=== PATIENT | female | born 1985 | race Caucasian/White ===

== ENCOUNTER 2017-11-13 07:19 | Emergency (ER) | payer MEDICAID, SELFPAY ==
[2017-11-13 07:20] VITALS: BP 119/83; PULSE 92; RESP 16; TEMP 37.1; O2SAT 100; BMI 37.4
--- NOTE | 2017-11-13 07:39 | RAD_ITS ---
STUDY: X-RAY CHEST REASON FOR EXAM: Female, 32 years old. Nonproductive cough TECHNIQUE: PA and lateral views of the chest. COMPARISON: 04/03/2015 FINDINGS: The lungs are clear and expanded. There is no demonstrated pleural abnormality. Normal size heart. Normal mediastinum and sherry. Normal visualized pulmonary arteries. Normal visualized aortic arch and descending thoracic aorta. Normal visualized thoracic spine. Normal visualized ribs, clavicles, and shoulders. There is no demonstrated abnormality of the visualized soft tissue structures of the upper abdomen. RAD/Chest PA and Lateral IMPRESSION: Normal x-ray examination of the chest. Electronically Signed: Micha Antonio MD at 8:31 EDT , Service support ,
[2017-11-13] MEDS: predniSONE 20 MG Tablet 60 MG PO (07:44)
[2017-11-13] MEDS: Ipratropium/Albuterol Sulfate 3 ML AMPUL.NEB INHALATION (07:44)
[2017-11-13 07:50] VITALS: PULSE 76; RESP 20
[2017-11-13 07:51] VITALS: O2SAT 98
--- NOTE | 2017-11-13 08:19 | ED.DCSUM_ITS ---
- ER Visit Summary Date of Service: 11/13/17 Chief Complaint: Cough History of Present Illness: The patient is a 32 F with a cough that started yesterday. This is a dry cough. She has bilateral rib pain and wheezing. She tried her albuterol inhaler but had minimal relief. She has a history of asthma. She had bronchitis and pneumonia last month and was on amoxicillin. She reports no heart history or history of PE. Physical Examination: No signs unremarkable. Afebrile. 100% on room air. Patient has diffuse expiratory wheeze. Heart regular. No murmurs. Skin appears normal. Pulses strong and equal. Calves soft and supple. Test Results: We will check chest x-ray and influenza test. Emergency Department Course and Treatment: Patient was treated with DuoNeb and prednisone while awaiting results. Chest x-ray and influenza testing were unremarkable. The patient felt better on reassessment. This is likely a viral illness with an asthma exacerbation. Will prescribe prednisone. She has breathing treatments at home. Will also add naproxen. She was given a pocket prescription for azithromycin if she has continued symptoms. Treatment Plan: As above Disposition: Discharged Impression: 1. Asthma exacerbation This note was generated with [employer] dictation software. It may contain incorrect words, spelling, and punctuation that were not noted in review of the chart prior to signing ED Disposition - Plan for ED Patient: Chief Complaint: Cough Referrals: Kendell Morgan DO [Primary Care Provider] -
--- NOTE | 2017-11-13 08:38 | ED.DEP ---
ED Disposition - Plan for ED Patient: Chief Complaint: Cough Instructions: Acute Bronchitis Prescriptions: Azithromycin [Zithromax] 250 mg PO DAILY #6 tab Naproxen [Naprosyn] 500 mg PO BID PRN #20 tab Prednisone 40 mg PO DAILY 5 Days #20 tab Referrals: Kendell Morgan DO [Primary Care Provider] -
[2017-11-13 08:58] VITALS: BP 129/67; PULSE 81; RESP 16; O2SAT 99
== END 2017-11-13 08:58 | disposition home or self-care (01) ==
PROVIDERS: Emergency Provider Emergency Medicine; Family Provider Student in an Organized Health Care Education/Training Program; PCP Student in an Organized Health Care Education/Training Program
DX: J45.901 Unspecified asthma with (acute) exacerbation (principal); R07.81 Pleurodynia; Z72.0 Tobacco use; Z79.899 Other long term (current) drug therapy; Z87.01 Personal history of pneumonia (recurrent); Z87.09 Personal history of other diseases of the respiratory system
CPT/HCPCS: 71046; 87804; 94640; 99283

== ENCOUNTER 2019-05-03 12:00 | Inpatient (IN) | payer MEDICAID, SELFPAY ==
[2019-05-03 12:00] VITALS: BP 117/81; PULSE 88; RESP 16; TEMP 37.1; O2SAT 99; BMI 30.9
--- NOTE | 2019-05-03 12:14 | CT_ITS ---
STUDY: CT ABDOMEN AND PELVIS WITH CONTRAST REASON FOR EXAM: Female, 34 years old. 2 day history of right lower quadrant pain with nausea and vomiting. Diarrhea. RADIATION DOSAGE (If Supplied By Facility): CTDIvol = ( 14.58 ) mGy, DLP = ( 937.02 ) mGycm TECHNIQUE: Transaxial images were obtained from the dome of the diaphragm to the symphysis pubis with oral contrast. 100 IV/Oral Isovue 300 was administered. Sagittal and coronal images were reconstructed. Individualized dose optimization techniques were used for this CT. COMPARISON: None. FINDINGS: The visualized lung bases are unremarkable. The visualized portions of the heart are within normal limits. Normal liver. Normal gallbladder and extrahepatic biliary system. Normal spleen. Normal pancreas. Normal bilateral adrenal glands. Normal right kidney. Normal left kidney. Normal visualized stomach. Normal small intestine. Diffuse circumferential wall thickening and edematous changes with increased markings in the surrounding peritoneal fat of the cecum and descending colon to the level of the transverse colon. This is in keeping with colitis. Scattered sigmoid diverticula. Small lymph nodes in the root of the mesentery in keeping with mesenteric adenitis. The appendix is visualized and appears normal. Normal abdominal aorta. Normal inferior vena cava. There is borderline retroperitoneal lymphadenopathy with enlarged nodes no greater than 10mm in the short axis diameter. Normal urinary bladder. Prior bilateral tubal ligation. Normal abdominal wall. Normal osseous structures. CT/Abdomen/Pelvis WITH Contrast IMPRESSION: There is evidence of colitis of the right hemicolon. Electronically Signed: Pablito Staley, at 14:36 EDT , Service support ,
[2019-05-03] MEDS: Morphine 4 MG/ML Syringe IV (12:35)
[2019-05-03] MEDS: 0.9% Normal Saline 1,000 ML 1000 ML IV (12:35)
[2019-05-03] MEDS: Ondansetron 4 MG/2 ML Vial IV (12:35)
[2019-05-03 12:39] LABS: Mucous, Urine 0 SEEN /hpf (<or=2+)
[2019-05-03 12:45] LABS: Color, Urine Yellow (Yellow); Glucose, Dipstick Normal (Normal); Ketone-Dipstick Negative (Negative); Leukocyte Esterase-Dipstick 100 /ul (Negative); Nitrite-Dipstick Negative (Negative); Occult Blood-Urine 50 /ul (Negative); Protein-Dipstick Negative (Negative); Specific Gravity, Urine 1.015 (1.002-1.030); Urine Bilirubin Dipstick Negative (Negative); Urine Clarity Sl. Cloudy (Clear); Urine Urobilinogen Normal (Normal)
[2019-05-03 12:51] LABS: Absolute Lymphocyte Count 2.03 X10^3/uL (0.83-4.51); Absolute Neutrophil Count 9.2 X10^3/uL (2.0-7.7); Basophil# 0.07 X10^3/uL; Basophil% 0.6 % (0-1); Eosinophil# 0.09 X10^3/uL; Eosinophils% 0.7 % (0-5); Hematocrit 40.8 % (37-47); Hemoglobin 13.7 g/dL (12.0-15.0); Lymphocyte # 2.03 X10^3/ul (4.0); Lymphocyte % 16.5 % (19-41); Mean Corp Hgb Conc 33.6 g/dL (32-36); Mean Corpuscular Hgb 31.5 pg (27.0-32.0); Mean Corpuscular Volume 93.8 fL (81-99); Mean Platelet Vol. 11.4 fl (6.2-12.0); Monocyte# 0.77 X10^3/uL; Monocyte% 6.3 % (0-10); NRBC Flagged by Analyzer 0 % (0-5); Neutrophil # 9.18 X10^3/uL (2.7-7.7); Neutrophil % 74.4 % (47-70); Platelet Count 242 K/mm3 (150-450); RBC Distribution Width CV 13.6 % (11.6-14.6); RBC Distribution Width SD 47.3 fl (35.1-43.9); Red Blood Count 4.35 M/mm3 (4.2-5.4); White Blood Count 12.3 K/mm3 (4.4-11.0)
[2019-05-03 12:56] LABS: Bacteria 1+ /hpf (None Seen); Red Blood Cells-Urine 0-5 SEEN /hpf (0-5); Squamous Epithelial Cells - UA 5-10 SEEN /hpf (5-10); White Blood Cells 5-10 SEEN /hpf (0-5)
--- NOTE | 2019-05-03 12:58 | ED.VIS.GI ---
History of Present Illness Chief Complaint: Abd Pain Informant: Patient - Abdominal Pain/Flank Pain Onset: Weeks - 1 week Context: Gradual Onset Timing: Continuous Quality: Dull Location: RLQ Current Severity: Moderate Maximum Severity: Severe Worsened by: Food Relieved by: Remaining Still - Nausea/Vomiting/Emesis GI Symptom: Nausea Onset: Yesterday Severity: Severe - Diarrhea/Melena/Hematochezia GI Symptom: Diarrhea Onset: Weeks - 1 Stool Quality: Watery. Negative for: Mucous, Black, Maroon, RIKI per rectum Severity: Severe Associated Symptoms: Negative for: Dysuria, Frequency, Hematuria, Urgency LMP: last week Narrative: 34-year-old female with worsening nausea vomiting and diarrhea for 1 week and right lower quadrant pain that is progressively gotten worse. No fevers. No melena or hematochezia. No hematemesis or coffee-ground emesis. No urinary symptoms. No back pain. She is not lightheaded or dizzy. No chest pain or shortness of breath. She has not had any recent antibiotic use or any sick contacts. Sent in by her family physician for concern for appendicitis. Prior similar symptoms: No Recent Illness/Hospitalization: No Past Medical History - Allergies and Home Meds Allergies/Adverse Reactions: Allergies No Known Allergies Allergy (Verified 11/13/17 07:20) Prior records reviewed: Yes Past Medical History: - - depression Surgical History: - - x 3 Smoking Status: Current every day smoker Review of Systems All systems negative except as indicated Gastrointestinal: Reports: Abdominal pain, Nausea, Vomiting, Diarrhea Physical Exam Vital Signs/Narrative: Vital Signs Temp Pulse Resp BP Pulse Ox 05/03/19 12:00 98.7 F 88 16 117/81 H 99 Inital Vital Signs reviewed: Yes General: Well nourished, Well developed, No Acute Distress Head: Normocephalic, Atraumatic Eyes: Perrl, EOMI ENT: Moist mucous membranes Neck: Supple, Nontender Cardiovascular: Regular rate, Regular rhythm Respiratory: No distress, CTA bilaterally, Chest nontender Abdomen: Soft, Nondistended, Normal bowel sounds, No masses, Tender - RLQ TTP. Negative for: Guarding, Rebound tenderness Back: Nontender Extremities: Nontender, No edema Skin: Normal color, No rash Neurological: Alert, Oriented x3 Psychological: Normal affect Diagnostic/Tx/Re-eval - Medical Decision Making Orthostatic vital signs were positive. Heart rate remains around 120 bpm. Patient has melena on rectal exam Hemoccult positive. Laboratory work-up shows a stable hemoglobin at 16.4. The rest of his laboratory work-up was unremarkable. I spoke with Dr. Mays initially who recommended transfer of the patient to a different facility. I then spoke with Dr. Flores who felt patient could stay here and that he would be able to perform an endoscopy and colonoscopy on the patient in the morning. I then spoke with the hospitalist. He agreed with admission. He will be admitted to the ICU. Patient's vital signs are stable at this time Critical care time (excluding procedures): 30-74 minutes ED Disposition - Plan for ED Patient: Disposition: Acute Care Hospital [facility] Diagnosis: Upper GI bleed
[2019-05-03 13:02] LABS: Internal QC Validated? YES +Cl - CLEAR BKGD; Pregnancy, Serum, hCG Quali. NEGATIVE Negative
[2019-05-03 13:03] LABS: ALB/GLOB Ratio 0.8 RATIO (0.9-2.4); AST(SGOT) 19 U/L (15-37); Alanine Aminotransfer ALT/SGPT 26 U/L (13-56); Albumin, Serum 3.5 g/dL (3.2-5.0); Alkaline Phosphatase 76 U/L (45-117); Anion Gap 4 (5-15); BUN 6 mg/dL (7-18); BUN/Creat Ratio 7.1 RATIO (10-20); Calcium,Total 8.8 mg/dL (8.5-10.1); Chloride 109 mmol/L (98-107); Creatinine, Serum 0.85 mg/dL (0.55-1.02); EST Glomerular Filtration Rate 80 mL/min (>60); Est Glom Filt Rate - Afr Amer 97 mL/min (>60); Estimated Creatinine Clearance 75.69 ml/min; Globulin 4.2 g/dL (2.2-4.2); Glucose 99 mg/dL (74-106); Lipase 91 U/L (73-393); Potassium 3.5 mmol/L (3.5-5.1); Protein, Total 7.7 g/dL (6.4-8.2); Sodium Level 138 mmol/L (136-145)
[2019-05-03 14:49] VITALS: BP 112/59; PULSE 66; RESP 16; O2SAT 99
[2019-05-03 16:04] VITALS: BP 121/74; PULSE 73; RESP 16; O2SAT 98
[2019-05-03 16:05] VITALS: BMI 31.0
--- NOTE | 2019-05-03 16:30 | PCM.HP.STD ---
Problem List (1) Right-sided colitis Status: Acute (2) Asthma Status: Chronic History of Present Illness Date of Admission: 05/03/19 Chief Complaint: Abdominal pain since yesterday. The patient is a 34 year old F with history of asthma on inhalers came to ED with 2 days history of abdominal pain predominantly on right side along with diarrhea. 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 Abdominal pain is about 8/10 intensity, persistent without relief. She went to urgent care from where she was referred to ED. Denies nausea, vomiting, GI bleed. Never had similar abdominal pain in the past. Patient denies lower urinary tract symptoms. She has normal menstrual with no menorrhagia. Denies fever chills. In the ED, CT abdomen was performed which shows mainly right-sided colitis from cecum up to mid transverse. Past Medical History Past Medical History (Chronic Problems): Chronic Problems Asthma (Chronic) Allergies No Known Allergies Allergy (Verified 11/13/17 07:20) Home Medications: Ambulatory Orders Medication Instructions Recorded Sertraline HCl [Zoloft] 50 mg PO DAILY 12/15/14 Albuterol Inhaler [Ventolin Hfa 2 puff INHALATION Q4H PRN PRN 01/05/15 (SP)] Fluticasone 44 Mcg [Flovent 44 Mcg] 1 puff INHALATION DAILY 05/03/19 Surgical History: - - x 3 Smoking Status: Current every day smoker Tobacco Use: Cigarettes - *Family History Maternal History Items: No pertinent history Review of Systems Constitutional: Denies: Chills, Fever, Weight Change HEENT: Denies: Head Aches, Sinus Congestion, Sinus Drainage Cardiovascular: Denies: Chest Pain, Palpitations Respiratory: Denies: Cough, Shortness of breath at rest, Sputum production Gastrointestinal: Reports: Abdominal Pain, Diarrhea. Denies: Nausea, Vomiting Genitourinary: Denies: Dysuria Musculoskeletal: Denies: Joint Pain, Joint Tenderness Skin: Denies: Rash, Wounds Neurological: Denies: Numbness, Tingling, Focal weakness Psychiatric: Denies: Anxiety, Depression, Homicidal Ideations, Suicidal Ideations Hematologic/ Lymphatic: Denies: Easy Bruising, Easy Bleeding VTE Information - Inpt Only VTE Present on Admission: No VTE Mechan Device Prophylaxis: None Reason prophylaxis not ordered:: Procedure Not Indicated - Risk early. Early ambulation. Patient Problems: Active and Suspected Problems Right-sided colitis (Acute) - Physical Exam General: Alert, Oriented x3, Cooperative HEENT: Atraumatic, PERRLA, EOMI, Normocephalic Neck: Supple, No JVD, Negative Carotid Bruits Lungs: Clear to auscultation, Normal air movement, No rhonchi, No wheeze, No rales Cardiovascular: Regular rate, Regular Rhythm, Normal S1, Normal S2, No murmurs Abdomen: Bowel Sounds Present, Soft, Hypoactive Bowel Sounds, Tender - Tenderness present over right lower, right upper quadrant. Extremities: No edema, Capillary Refill Less than 3 Seconds Skin: No rashes, No breakdown Musculoskeletal: No Tenderness to Palpation of Joints or Extremities Neurological: Cranial nerves II-XII grossly intact Psych/Mental Status: Normal Affect, Appropriate Vital Signs Temp Pulse Resp BP Pulse Ox 98.7 F 73 16 121/74 H 98 05/03/19 12:00 05/03/19 16:04 05/03/19 16:04 05/03/19 16:04 05/03/19 16:04 Oxygen Delivery Method Room Air Weight: 175 lb Body Mass Index (BMI) 30.9 Intake and Output for Last 24 Hours 05/01/19 05/02/19 05/03/19 23:59 23:59 23:59 Intake Total 1000 / 1000 Balance 1000 / 1000 Laboratory Tests Past 24 Hrs 05/03/19 05/03/19 05/03/19 12:20 12:25 12:25 WBC 12.3 H RBC 4.35 Hgb 13.7 Hct 40.8 MCV 93.8 MCH 31.5 MCHC 33.6 RDW Std Deviation 47.3 H RDW Coeff of Jori 13.6 Plt Count 242 MPV 11.4 Immature Gran % (Auto) 1.500 H Neut % (Auto) 74.4 H Lymph % (Auto) 16.5 L [place] % (Auto) 6.3 Eos % (Auto) 0.7 Baso % (Auto) 0.6 Absolute Neuts (auto) 9.2 H Absolute Lymphs (auto) 2.03 Nucleated RBC % 0 Sodium 138 Potassium 3.5 Chloride 109 H Carbon Dioxide 25.0 Anion Gap 4 L BUN 6 L Creatinine 0.85 Estim Creat Clear Calc 75.69 Est GFR (MDRD) Af Amer 97 Est GFR (MDRD) Non-Af 80 BUN/Creatinine Ratio 7.1 L Glucose 99 Calcium 8.8 Total Bilirubin 0.20 AST 19 ALT 26 Alkaline Phosphatase 76 Total Protein 7.7 Albumin 3.5 Globulin 4.2 Albumin/Globulin Ratio 0.8 L Lipase 91 Serum , Qual Urine Color Yellow Urine Clarity Sl. Cloudy Urine pH 6.0 Ur Specific [place] 1.015 Urine Protein Negative Urine Glucose (UA) Normal Urine Ketones Negative Urine Occult Blood 50 H Urine Nitrite Negative Urine Bilirubin Negative Urine Urobilinogen Normal Ur Leukocyte Esterase 100 H Urine RBC 0-5 SEEN Urine WBC 5-10 SEEN Ur Squamous Epith Cells 5-10 SEEN Urine Bacteria 1+ Urine Mucus 0 SEEN 05/03/19 12:25 WBC RBC Hgb Hct MCV MCH MCHC RDW Std Deviation RDW Coeff of Jori Plt Count MPV Immature Gran % (Auto) Neut % (Auto) Lymph % (Auto) [place] % (Auto) Eos % (Auto) Baso % (Auto) Absolute Neuts (auto) Absolute Lymphs (auto) Nucleated RBC % Sodium Potassium Chloride Carbon Dioxide Anion Gap BUN Creatinine Estim Creat Clear Calc Est GFR (MDRD) Af Amer Est GFR (MDRD) Non-Af BUN/Creatinine Ratio Glucose Calcium Total Bilirubin AST ALT Alkaline Phosphatase Total Protein Albumin Globulin Albumin/Globulin Ratio Lipase Serum , Qual NEGATIVE Urine Color Urine Clarity Urine pH Ur Specific [place] Urine Protein Urine Glucose (UA) Urine Ketones Urine Occult Blood Urine Nitrite Urine Bilirubin Urine Urobilinogen Ur Leukocyte Esterase Urine RBC Urine WBC Ur Squamous Epith Cells Urine Bacteria Urine Mucus Assessment/Plan All Active Problems Right-sided colitis (Acute) The patient is a 34 year old F with history of asthma on inhalers came to ED with 2 days history of abdominal pain predominantly on right side along with diarrhea. 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 Abdominal pain is about 8/10 intensity, persistent without relief. She went to urgent care from where she was referred to ED. Denies nausea, vomiting, GI bleed. Never had similar abdominal pain in the past. Patient denies lower urinary tract symptoms. She has normal menstrual with no menorrhagia. Denies fever chills. In the ED, CT abdomen was performed which shows diffuse circumferential wall thickening and edematous changes with increased markings surrounding peritoneal fat of cecum, ascending and transverse colon Consistent with right-sided colitis. 1. Right-sided colitis involving from cecum up to mid transverse colon: Patient is being admitted to [facility]. IV fluid normal saline. Clear liquid diet. Patient had IV Zosyn in the ED. Started on IV Cipro and Flagyl. Dr. Tinsley consult. Stool for enteric bacteriology panel, occult blood and leukocytes ordered. I think it most probably infectious colitis from slaughterhouse. Patient does not have any recent antibiotic exposure in last 3 months. 2. Asthma with history of smoking: Smoking cessation advised. Continue fluticasone inhaler and albuterol inhaler as needed. 3. DVT prophylaxis low risk,: No prophylaxis indicated. Early ambulation encouraged. Clinical Impression(s) from Imaging Studies Abdomen/Pelvis CT 05/03/19 12:14 IMPRESSION: There is evidence of colitis of the right hemicolon. Code Visit Inpatient E&M: 87729 Init Hosp L2
[2019-05-03 16:50] VITALS: BMI 31.5
[2019-05-03 16:55] VITALS: BP 103/59; PULSE 66; RESP 16; TEMP 37; O2SAT 100
[2019-05-03] MEDS: 0.9% Normal Saline 1,000 ML 100 ML IV (17:52)
[2019-05-03] MEDS: metroNIDAZOLE 500 MG/100 ML BAG 100 MG IV (17:53)
--- NOTE | 2019-05-03 20:15 | CON.PCM_ITS ---
Reason for Consult Date of Consultation: 05/03/19 Reason for Consultation: right-sided abdominal pain-colitis History of Present Illness: The patient is a 34 year old F with a 2 day history of loose watery stools and right-sided abdominal pain. the patient denied nausea or vomiting. She denied foreign travel. She noted no recent antibiotic use. She notes no other people at home home with food type illnesses. she presented to urgent care and was felt to have significant right lower quadrant tenderness and sent to [facility] for abdominal pain rule out appendicitis. the patient was found of a mildly overweight blood cell count of 12.3. Mild left shift, unremarkable metabolic panel. CT scan of the abdomen and pelvis was obtained which demonstrated right-sided colitis. Past Medical History Past Medical History (Chronic Problems): Chronic Problems Asthma (Chronic) Allergies No Known Allergies Allergy (Verified 11/13/17 07:20) Home Medications: Ambulatory Orders Medication Instructions Recorded Sertraline HCl [Zoloft] 50 mg PO DAILY 12/15/14 Albuterol Inhaler [Ventolin Hfa 2 puff INHALATION Q4H PRN PRN 01/05/15 (SP)] Fluticasone 44 Mcg [Flovent 44 Mcg] 1 puff INHALATION DAILY 05/03/19 Surgical History: - - x 3 Smoking Status: Current every day smoker Tobacco Use: Cigarettes - *Family History Maternal History Items: No pertinent history Review of Systems Constitutional: Denies: Chills, Fever, Weight Change HEENT: Denies: Head Aches, Sinus Congestion, Sinus Drainage Cardiovascular: Denies: Chest Pain, Palpitations Respiratory: Denies: Cough, Shortness of breath at rest, Sputum production Gastrointestinal: Reports: Abdominal Pain, Diarrhea. Denies: Nausea, Vomiting Genitourinary: Denies: Dysuria Musculoskeletal: Denies: Joint Pain, Joint Tenderness Skin: Denies: Rash, Wounds Neurological: Denies: Numbness, Tingling, Focal weakness Psychiatric: Denies: Anxiety, Depression, Homicidal Ideations, Suicidal Ideations Hematologic/ Lymphatic: Denies: Easy Bruising, Easy Bleeding Patient Problems: Active and Suspected Problems Right-sided colitis (Acute) - Physical Exam General: Alert, Oriented x3, Cooperative HEENT: Atraumatic, PERRLA, EOMI, Normocephalic Neck: Supple, No JVD, Negative Carotid Bruits Cardiovascular: Regular rate, No murmurs Abdomen: Bowel Sounds Present, Soft, Tender - along the right abdomen without diffuse peritoneal signs Vital Signs Temp Pulse Resp BP Pulse Ox 98.6 F 66 16 103/59 L 100 05/03/19 16:55 05/03/19 16:55 05/03/19 16:55 05/03/19 16:55 05/03/19 16:55 Oxygen Delivery Method Room Air Weight: 80.739 kg Body Mass Index (BMI) 31.5 Intake and Output for Last 24 Hours 05/01/19 05/02/19 05/03/19 23:59 23:59 23:59 Intake Total 1401.67 / 1401.67 Balance 1401.67 / 1401.67 Laboratory Tests Past 24 Hrs 05/03/19 05/03/19 05/03/19 12:20 12:25 12:25 WBC 12.3 H RBC 4.35 Hgb 13.7 Hct 40.8 MCV 93.8 MCH 31.5 MCHC 33.6 RDW Std Deviation 47.3 H RDW Coeff of Jori 13.6 Plt Count 242 MPV 11.4 Immature Gran % (Auto) 1.500 H Neut % (Auto) 74.4 H Lymph % (Auto) 16.5 L [place] % (Auto) 6.3 Eos % (Auto) 0.7 Baso % (Auto) 0.6 Absolute Neuts (auto) 9.2 H Absolute Lymphs (auto) 2.03 Nucleated RBC % 0 Sodium 138 Potassium 3.5 Chloride 109 H Carbon Dioxide 25.0 Anion Gap 4 L BUN 6 L Creatinine 0.85 Estim Creat Clear Calc 75.69 Est GFR (MDRD) Af Amer 97 Est GFR (MDRD) Non-Af 80 BUN/Creatinine Ratio 7.1 L Glucose 99 Calcium 8.8 Total Bilirubin 0.20 AST 19 ALT 26 Alkaline Phosphatase 76 Total Protein 7.7 Albumin 3.5 Globulin 4.2 Albumin/Globulin Ratio 0.8 L Lipase 91 Serum , Qual Urine Color Yellow Urine Clarity Sl. Cloudy Urine pH 6.0 Ur Specific [place] 1.015 Urine Protein Negative Urine Glucose (UA) Normal Urine Ketones Negative Urine Occult Blood 50 H Urine Nitrite Negative Urine Bilirubin Negative Urine Urobilinogen Normal Ur Leukocyte Esterase 100 H Urine RBC 0-5 SEEN Urine WBC 5-10 SEEN Ur Squamous Epith Cells 5-10 SEEN Urine Bacteria 1+ Urine Mucus 0 SEEN 05/03/19 12:25 WBC RBC Hgb Hct MCV MCH MCHC RDW Std Deviation RDW Coeff of Jori Plt Count MPV Immature Gran % (Auto) Neut % (Auto) Lymph % (Auto) [place] % (Auto) Eos % (Auto) Baso % (Auto) Absolute Neuts (auto) Absolute Lymphs (auto) Nucleated RBC % Sodium Potassium Chloride Carbon Dioxide Anion Gap BUN Creatinine Estim Creat Clear Calc Est GFR (MDRD) Af Amer Est GFR (MDRD) Non-Af BUN/Creatinine Ratio Glucose Calcium Total Bilirubin AST ALT Alkaline Phosphatase Total Protein Albumin Globulin Albumin/Globulin Ratio Lipase Serum , Qual NEGATIVE Urine Color Urine Clarity Urine pH Ur Specific [place] Urine Protein Urine Glucose (UA) Urine Ketones Urine Occult Blood Urine Nitrite Urine Bilirubin Urine Urobilinogen Ur Leukocyte Esterase Urine RBC Urine WBC Ur Squamous Epith Cells Urine Bacteria Urine Mucus Assessment/Plan All Active Problems Right-sided colitis (Acute) right-sided colitis-likely infectious Enteric panel is currently pending. C. difficile is negative. Fecal WBCs and occult blood is positive. the patient was started on antibiotics-ciprofloxacin and metronidazole. We'll follow the patient clinically. If her symptoms worsen or has increased bloody diarrhea would plan for unprepped colonoscopy. Otherwise comfortable with liquids and/or low residue diet until her abdominal pain symptoms and diarrhea resolve.
[2019-05-03] MEDS: Ciprofloxacin 400 MG/200 ML BAG 200 MG IV (21:03)
[2019-05-03] MEDS: Acetaminophen 325 MG Tablet 650 MG PO (21:04)
[2019-05-03 21:17] VITALS: BP 121/68; PULSE 75; RESP 16; TEMP 37.2; O2SAT 100
[2019-05-03] MEDS: oxyCODONE 5 MG Tablet PO (21:26)
[2019-05-03 21:36] VITALS: PULSE 75; RESP 16; O2SAT 100
[2019-05-04 03:23] VITALS: BP 105/56; PULSE 70; RESP 16; TEMP 36.5; O2SAT 98
[2019-05-04] MEDS: BENZOCAINE/MENTHOL 1 LOZENGE 2 LOZENGE MUCOUS MEM (04:19)
[2019-05-04] MEDS: Phenol/Sodium Phenolate 180ML 5 SPRAY MM (04:20)
[2019-05-04] MEDS: 0.9% Normal Saline 1,000 ML 100 ML IV ×2 (04:21→16:16)
[2019-05-04] MEDS: metroNIDAZOLE 500 MG/100 ML BAG 100 MG IV (05:25)
[2019-05-04 08:07] LABS: Absolute Neutrophil Count 5.3 X10^3/uL (2.0-7.7); Basophil# 0.06 X10^3/uL; Basophil% 0.7 % (0-1); Eosinophil# 0.16 X10^3/uL; Hematocrit 34.1 % (37-47); Hemoglobin 11.2 g/dL (12.0-15.0); Lymphocyte % 23.2 % (19-41); Mean Corp Hgb Conc 32.8 g/dL (32-36); Mean Corpuscular Hgb 31.3 pg (27.0-32.0); Mean Corpuscular Volume 95.3 fL (81-99); Mean Platelet Vol. 11.2 fl (6.2-12.0); Monocyte# 0.77 X10^3/uL; Monocyte% 9.4 % (0-10); NRBC Flagged by Analyzer 0 % (0-5); Neutrophil # 5.27 X10^3/uL (2.7-7.7); Neutrophil % 64.5 % (47-70); Platelet Count 196 K/mm3 (150-450); RBC Distribution Width CV 14.1 % (11.6-14.6); RBC Distribution Width SD 49.6 fl (35.1-43.9); Red Blood Count 3.58 M/mm3 (4.2-5.4); White Blood Count 8.2 K/mm3 (4.4-11.0)
[2019-05-04 08:31] LABS: Anion Gap 1 (5-15); BUN 5 mg/dL (7-18); BUN/Creat Ratio 6.8 RATIO (10-20); Calcium,Total 7.8 mg/dL (8.5-10.1); Chloride 115 mmol/L (98-107); Creatinine, Serum 0.74 mg/dL (0.55-1.02); EST Glomerular Filtration Rate 95 mL/min (>60); Est Glom Filt Rate - Afr Amer 115 mL/min (>60); Estimated Creatinine Clearance 86.94 ml/min; Glucose 84 mg/dL (74-106); Potassium 3.7 mmol/L (3.5-5.1); Sodium Level 143 mmol/L (136-145); Thyroid Stim Hormone (TSH) 0.96 uIU/mL (0.358-3.74)
[2019-05-04] MEDS: Ciprofloxacin 400 MG/200 ML BAG 200 MG IV (08:44)
[2019-05-04] MEDS: Sertraline 50 MG Tablet PO (08:44)
[2019-05-04 08:45] VITALS: BP 104/53; PULSE 70; RESP 14; TEMP 36.6; O2SAT 98
--- NOTE | 2019-05-04 09:26 | PCM.PN.HOSP ---
Patient Problems: Active and Suspected Problems Right-sided colitis (Acute) Subjective: Patient is a 34-year-old female admitted to the ED on 05/03/2019 with a complaint of right-sided abdominal pain with associated diarrhea for about 2 days. She did have any GI bleed and has never had such pain in the past. CT of the abdomen done showed right-sided colitis from the cecum to the mid transverse colon. She is on IV ciprofloxacin and metronidazole. General surgery on board. Patient seen and examined. She still has some abdominal pain but states is much better. Nausea and vomiting as well as diarrhea have resolved. Review of systems otherwise negative. General surgery on board and wish to keep patient on clear liquid diet for now. Vitals/I&O's: Vital Signs Temp Pulse Resp BP Pulse Ox 97.7 F L 70 16 105/56 L 98 05/04/19 03:23 05/04/19 03:23 05/04/19 03:23 05/04/19 03:23 05/04/19 03:23 Oxygen Delivery Method Room Air Weight: 178 lb Body Mass Index (BMI) 31.5 Intake and Output for Last 24 Hours 05/02/19 05/03/19 05/04/19 23:59 23:59 23:59 Intake Total 1803.34 / 2063.34 1728.34 / 1728.34 Output Total 1100 / 1100 Balance 1803.34 / 1463.34 628.34 / 628.34 General: Alert, Oriented x3, Cooperative, No apparent distress HEENT: Atraumatic, PERRLA, EOMI, Normocephalic Oral: Moist Mucosa Neck: Supple, No JVD, Negative Carotid Bruits Lungs: Clear to auscultation, Normal air movement, No rhonchi, No wheeze Cardiovascular: Regular rate, Regular Rhythm, Normal S1, Normal S2, No murmurs Abdomen: Bowel Sounds Present, Soft, - - mild tenderness in right lower quadrant, no guarding or rebound tenderness Extremities: No clubbing, No cyanosis, No edema, Capillary Refill Less than 3 Seconds Skin: No rashes, No breakdown Musculoskeletal: No Tenderness to Palpation of Joints or Extremities Lymphatic: No Cervical, Supraclavicular, or Inguinal Adenopathy Neurological: Cranial nerves II-XII grossly intact, Neuro grossly intact, Motor Exam 5/5 strength throughout Psych/Mental Status: Normal Affect, Appropriate, Alert and oriented to time, place, person, mood and affect Microbiology Past 72 Hours 05/04/19 03:32 Stool C. difficile DNA Amplification - Final 05/04/19 03:32 Stool Stool Lactoferrin - Final 05/04/19 03:32 Stool Stool Occult Blood (WILLY) - Final Occult Blood Positive Laboratory Results 05/03/19 12:20: Urine Color Yellow, Urine Clarity Sl. Cloudy, Urine pH 6.0, Ur Specific [place] 1.015, Urine Protein Negative, Urine Glucose (UA) Normal, Urine Ketones Negative, Urine Occult Blood 50 H, Urine Nitrite Negative, Urine Bilirubin Negative, Urine Urobilinogen Normal, Ur Leukocyte Esterase 100 H, Urine RBC 0-5 SEEN, Urine WBC 5-10 SEEN, Ur Squamous Epith Cells 5-10 SEEN, Urine Bacteria 1+, Urine Mucus 0 SEEN 05/03/19 12:25: WBC 12.3 H, RBC 4.35, Hgb 13.7, Hct 40.8, MCV 93.8, MCH 31.5, MCHC 33.6, RDW Std Deviation 47.3 H, RDW Coeff of Jori 13.6, Plt Count 242, MPV 11.4, Immature Gran % (Auto) 1.500 H, Neut % (Auto) 74.4 H, Lymph % (Auto) 16.5 L, [place] % (Auto) 6.3, Eos % (Auto) 0.7, Baso % (Auto) 0.6, Absolute Neuts (auto) 9.2 H, Absolute Lymphs (auto) 2.03, Nucleated RBC % 0 05/03/19 12:25: Sodium 138, Potassium 3.5, Chloride 109 H, Carbon Dioxide 25.0, Anion Gap 4 L, BUN 6 L, Creatinine 0.85, Estim Creat Clear Calc 75.69, Est GFR (MDRD) Af Amer 97, Est GFR (MDRD) Non-Af 80, BUN/Creatinine Ratio 7.1 L, Glucose 99, Calcium 8.8, Total Bilirubin 0.20, AST 19, ALT 26, Alkaline Phosphatase 76, Total Protein 7.7, Albumin 3.5, Globulin 4.2, Albumin/Globulin Ratio 0.8 L, Lipase 91 05/03/19 12:25: Serum , Qual NEGATIVE 05/04/19 07:49: WBC 8.2, RBC 3.58 L, Hgb 11.2 L, Hct 34.1 L, MCV 95.3, MCH 31.3, MCHC 32.8, RDW Std Deviation 49.6 H, RDW Coeff of Jori 14.1, Plt Count 196, MPV 11.2, Immature Gran % (Auto) 0.200, Neut % (Auto) 64.5, Lymph % (Auto) 23.2, [place] % (Auto) 9.4, Eos % (Auto) 2.0, Baso % (Auto) 0.7, Absolute Neuts (auto) 5.3, Absolute Lymphs (auto) 1.90, Nucleated RBC % 0 05/04/19 07:49: Sodium 143, Potassium 3.7, Chloride 115 H, Carbon Dioxide 27.0, Anion Gap 1 L, BUN 5 L, Creatinine 0.74, Estim Creat Clear Calc 86.94, Est GFR (MDRD) Af Amer 115, Est GFR (MDRD) Non-Af 95, BUN/Creatinine Ratio 6.8 L, Glucose 84, Calcium 7.8 L, TSH 0.96 Diagnostic Data Abdomen/Pelvis CT 05/03/19 12:14 IMPRESSION: There is evidence of colitis of the right hemicolon. Electronically Signed: Pablito Staley, at 14:36 EDT , Service support , Current Medications Acetaminophen (Tylenol) 650 mg PO Q6H PRN PRN PRN Reason: Mild Pain (1-3)/Temp > 100.7 F Last Admin: 05/03/19 21:04 Dose: 650 mg Documented by: Albuterol Sulfate (Ventolin Aerosols) 2.5 mg INHALATION Q4H PRN PRN PRN Reason: SOB &/OR WHEEZING Budesonide (Pulmicort Aerosol) 0.5 mg INHALATION Q12H.RT CHRISTI Sodium Chloride () 1,000 mls @ 100 mls/hr IV .Q10H CHRISTI Last Infusion: 05/04/19 08:44 Dose: 0 mls/hr Documented by: Ciprofloxacin (Cipro) 400 mg in 200 mls @ 200 mls/hr IV Q12H CHRISTI Last Admin: 05/04/19 08:44 Dose: 200 mls/hr Documented by: Metronidazole (Flagyl) 500 mg in 100 mls @ 100 mls/hr IV Q8 [facility] Last Infusion: 05/04/19 06:25 Dose: Infused Documented by: Morphine Sulfate () 2 mg IV Q3H PRN PRN PRN Reason: Severe pain (7-10/10) Ondansetron HCl (Zofran) 4 mg IV Q8H PRN PRN PRN Reason: NAUSEA/VOMITING Oxycodone HCl (Oxyir) 5 mg PO Q4H PRN PRN PRN Reason: Moderate Pain (4-6/10) Last Admin: 05/03/19 21:26 Dose: 5 mg Documented by: Phenol/Menthol (Chloraseptic (Bkc)) 5 spray MM Q2H PRN PRN PRN Reason: SORE THROAT Last Admin: 05/04/19 04:20 Dose: 5 spray Documented by: Promethazine HCl (Phenergan) 12.5 mg IV Q6H PRN PRN PRN Reason: Breakthrough nausea/vomiting Sertraline HCl (Zoloft) 50 mg PO DAILY [facility] Last Admin: 05/04/19 08:44 Dose: 50 mg Documented by: Sodium Chloride () 10 - 40 ml IV UD PRN PRN Reason: SALINE FLUSH Throat Lozenges (Cepacol Sore Throat Lozenge) 2 lozenge MUCOUS MEM Q2H PRN PRN PRN Reason: SORE THROAT Last Admin: 05/04/19 04:19 Dose: 2 lozenge Documented by: Medical Necessity - Tobacco Use Smoking Status: Current every day smoker Tobacco Use: Cigarettes Assessment/Plan All Active Problems Right-sided colitis (Acute) 1. Colitis of the cecum to mid transverse colon' likely infectious still has abdominal pain, but diarrhea and vomiting have resolved general surgery on board; on clear liquid diet now continue IV ciprofloxacin and IV metronidazole stool occult blood was positive; C Diff was negative, stool enteric pathogens and ova and parasites are pending IV zofran prn 2. History of asthma: counselled to quit smoking. Continue fluticasone and albuterol inhalers. 3. Depression: stable. on zoloft. DVT prophylaxis: encourage ambulation; low risk Code Visit Inpatient E&M: 92405 [facility] Hosp L2
[2019-05-04] MEDS: oxyCODONE 5 MG Tablet PO (11:29)
[2019-05-04] MEDS: Acetaminophen 325 MG Tablet 650 MG PO ×2 (11:30→23:01)
--- NOTE | 2019-05-04 11:32 | PCM.PN.SRG ---
Patient Problems: Active and Suspected Problems Right-sided colitis (Acute) Subjective: improved but still present right sided abdominal pain - Physical Exam General: Alert, Oriented x3, Cooperative Lungs: Clear to auscultation, Normal air movement Cardiovascular: Regular rate, No murmurs Abdomen: Bowel Sounds Present, Soft, Tender - right sided Vital Signs Temp Pulse Resp BP Pulse Ox 97.8 F 70 14 104/53 L 98 05/04/19 08:45 05/04/19 08:45 05/04/19 08:45 05/04/19 08:45 05/04/19 08:45 Oxygen Delivery Method Room Air Weight: 80.739 kg Body Mass Index (BMI) 31.5 Intake and Output for Last 24 Hours 05/02/19 05/03/19 05/04/19 23:59 23:59 23:59 Intake Total 1803.34 / 2063.34 1928.34 / 1928.34 Output Total 1100 / 1100 Balance 1803.34 / 1463.34 828.34 / 828.34 Microbiology Past 72 Hours 05/04/19 08:10 Enteric Bacteriology - Final Stool 05/04/19 03:32 C. difficile DNA Amplification - Final Stool 05/04/19 03:32 Stool Lactoferrin - Final Stool 05/04/19 03:32 Stool Occult Blood (WILLY) - Final Stool Occult Blood Positive Laboratory Tests Past 24 Hrs 05/03/19 05/03/19 05/03/19 12:20 12:25 12:25 WBC 12.3 H RBC 4.35 Hgb 13.7 Hct 40.8 MCV 93.8 MCH 31.5 MCHC 33.6 RDW Std Deviation 47.3 H RDW Coeff of Jori 13.6 Plt Count 242 MPV 11.4 Immature Gran % (Auto) 1.500 H Neut % (Auto) 74.4 H Lymph % (Auto) 16.5 L [place] % (Auto) 6.3 Eos % (Auto) 0.7 Baso % (Auto) 0.6 Absolute Neuts (auto) 9.2 H Absolute Lymphs (auto) 2.03 Nucleated RBC % 0 Sodium 138 Potassium 3.5 Chloride 109 H Carbon Dioxide 25.0 Anion Gap 4 L BUN 6 L Creatinine 0.85 Estim Creat Clear Calc 75.69 Est GFR (MDRD) Af Amer 97 Est GFR (MDRD) Non-Af 80 BUN/Creatinine Ratio 7.1 L Glucose 99 Calcium 8.8 Total Bilirubin 0.20 AST 19 ALT 26 Alkaline Phosphatase 76 Total Protein 7.7 Albumin 3.5 Globulin 4.2 Albumin/Globulin Ratio 0.8 L Lipase 91 TSH Serum , Qual Urine Color Yellow Urine Clarity Sl. Cloudy Urine pH 6.0 Ur Specific [place] 1.015 Urine Protein Negative Urine Glucose (UA) Normal Urine Ketones Negative Urine Occult Blood 50 H Urine Nitrite Negative Urine Bilirubin Negative Urine Urobilinogen Normal Ur Leukocyte Esterase 100 H Urine RBC 0-5 SEEN Urine WBC 5-10 SEEN Ur Squamous Epith Cells 5-10 SEEN Urine Bacteria 1+ Urine Mucus 0 SEEN 05/03/19 05/04/19 05/04/19 12:25 07:49 07:49 WBC 8.2 RBC 3.58 L Hgb 11.2 L Hct 34.1 L MCV 95.3 MCH 31.3 MCHC 32.8 RDW Std Deviation 49.6 H RDW Coeff of Jori 14.1 Plt Count 196 MPV 11.2 Immature Gran % (Auto) 0.200 Neut % (Auto) 64.5 Lymph % (Auto) 23.2 [place] % (Auto) 9.4 Eos % (Auto) 2.0 Baso % (Auto) 0.7 Absolute Neuts (auto) 5.3 Absolute Lymphs (auto) 1.90 Nucleated RBC % 0 Sodium 143 Potassium 3.7 Chloride 115 H Carbon Dioxide 27.0 Anion Gap 1 L BUN 5 L Creatinine 0.74 Estim Creat Clear Calc 86.94 Est GFR (MDRD) Af Amer 115 Est GFR (MDRD) Non-Af 95 BUN/Creatinine Ratio 6.8 L Glucose 84 Calcium 7.8 L Total Bilirubin AST ALT Alkaline Phosphatase Total Protein Albumin Globulin Albumin/Globulin Ratio Lipase TSH 0.96 Serum , Qual NEGATIVE Urine Color Urine Clarity Urine pH Ur Specific [place] Urine Protein Urine Glucose (UA) Urine Ketones Urine Occult Blood Urine Nitrite Urine Bilirubin Urine Urobilinogen Ur Leukocyte Esterase Urine RBC Urine WBC Ur Squamous Epith Cells Urine Bacteria Urine Mucus Medical Necessity - Tobacco Use Smoking Status: Current every day smoker Tobacco Use: Cigarettes Assessment/Plan All Active Problems Right-sided colitis (Acute) right-sided colitis-likely infectious Enteric panel returned as campylobacter. C. difficile is negative. Fecal WBCs and occult blood is positive. the patient was started on antibiotics-ciprofloxacin and metronidazole. We can stop the IV antibiotics and switch to oral azithromycin. Otherwise comfortable with liquids and/or low residue diet until her abdominal pain symptoms and diarrhea resolve.
[2019-05-04] MEDS: Azithromycin 250 MG Tablet 500 MG PO (12:29)
[2019-05-04 13:25] VITALS: PULSE 71; RESP 18
[2019-05-04] MEDS: Budesonide Respules 0.5 MG/2 ML AMPUL.NEB. INHALATION ×2 (13:25→19:25)
[2019-05-04 14:45] VITALS: BP 103/64; PULSE 61; RESP 16; TEMP 37.1; O2SAT 100
--- NOTE | 2019-05-04 16:46 | CM.UR ---
RN CM Assessment Introduced role of RN CM to patient. Patient is alert and able to participate in RN CM Assessment. Care providers, pharmacy, and demographics verified. Helga at bedside. Presentation: abd pain Admit Dx: colitis +campylobacter Re-Admit: No Barriers/Issues: None noted PCP: Eddie Specialists: none. Currently getting OP therapy for left arm for previous injury. Preferred [facility]: [facility] [facility] Benef[facility]: Yes; no copays LNOK: Jesus Duron helga LW/HPOA: None, booklet given. Living Arrangements: Lives with helga and his grandparents in a 2 story home. 3 steps to get into and 12 steps to second floor. No accessibility issues. ADL?s: Independent Transportation: self DME: none DME co: no preference HHC: None SNF: None Goal: Home DC PLAN: Home, no needs anticipated. Golden Cedillo RN, CCM.
[2019-05-04 19:26] VITALS: PULSE 55; RESP 18
[2019-05-04 21:06] VITALS: BP 119/61; PULSE 65; RESP 16; TEMP 37.1; O2SAT 99
[2019-05-05 03:00] VITALS: BP 107/67; PULSE 69; RESP 16; TEMP 37.1; O2SAT 98
[2019-05-05] MEDS: 0.9% Normal Saline 1,000 ML 100 ML IV (03:07)
[2019-05-05 08:00] VITALS: BP 107/76; PULSE 56; RESP 14; TEMP 37.2; O2SAT 97
--- NOTE | 2019-05-05 09:49 | PN.SURG_ITS ---
Patient Problems: Active and Suspected Problems Right-sided colitis (Acute) Subjective: less abdominal pain, hungry, still no flatus - Physical Exam General: Alert, Oriented x3, Cooperative Lungs: Clear to auscultation, Normal air movement Cardiovascular: Regular rate, No murmurs Abdomen: Bowel Sounds Present, Soft, Non Tender Vital Signs Temp Pulse Resp BP Pulse Ox 98.9 F 56 L 14 107/76 97 05/05/19 08:00 05/05/19 08:00 05/05/19 08:00 05/05/19 08:00 05/05/19 08:00 Oxygen Delivery Method Room Air Weight: 80.739 kg Body Mass Index (BMI) 31.5 Intake and Output for Last 24 Hours 05/03/19 05/04/19 05/05/19 23:59 23:59 23:59 Intake Total 1803.34 / 2063.34 4381.67 / 4381.67 1425 / 1425 Output Total 1600 / 1600 Balance 1803.34 / 1463.34 2781.67 / 2781.67 1425 / 1425 Microbiology Past 72 Hours 05/03/19 12:20 Urine Culture - Final Urine, Clean Catch Presumptive E. coli 05/04/19 08:10 Enteric Bacteriology - Final Stool Campylobacter species 05/04/19 03:32 C. difficile DNA Amplification - Final Stool 05/04/19 03:32 Stool Lactoferrin - Final Stool 05/04/19 03:32 Stool Occult Blood (WILLY) - Final Stool Occult Blood Positive Medical Necessity - Tobacco Use Smoking Status: Current every day smoker Tobacco Use: Cigarettes Assessment/Plan All Active Problems Right-sided colitis (Acute) right-sided colitis- infectious Enteric panel returned as campylobacter. C. difficile is negative. Fecal WBCs and occult blood is positive. the patient was started on antibiotics- ciprofloxacin and metronidazole. We can stop the IV antibiotics and switch to oral azithromycin. Otherwise comfortable with liquids and/or low residue diet until her abdominal pain symptoms and diarrhea resolve. I am comfortable with her being discharged home and follow up in my office in one week.
[2019-05-05] MEDS: Sertraline 50 MG Tablet PO (09:51)
[2019-05-05] MEDS: Ciprofloxacin 500 MG Tablet PO (09:51)
--- NOTE | 2019-05-05 09:54 | PCM.DC ---
- Discharge Diagnoses Current Active Problems: Current Active and Chronic Problems Right-sided colitis (Acute) Asthma (Chronic) You will use the following diet at home:: Regular Your food should be the consistency of: Regular Your liquids should be the consistency of: Regular/Thin Discharge Activity: Return to Normal Activity Weight Bearing Status: Weight bearing as tolerated Call your doctor if you observe: Fever of 101 or Higher, - - abdominal pain, diarrhea Instructions: Treating Diarrhea, Bacterial Gastroenteritis, Campylobacter Culture (Stool) Allergies/Adverse Reactions: Allergies No Known Allergies Allergy (Verified 11/13/17 07:20) Medications to take at Discharge Sertraline HCl [Zoloft] 50 mg PO DAILY 12/15/14 Albuterol Inhaler [Ventolin Hfa] 2 puff INHALATION Q4H PRN PRN 01/05/15 Fluticasone 44 Mcg [Flovent 44 Mcg] 1 puff INHALATION DAILY 05/03/19 Ciprofloxacin [Cipro] 500 mg PO BID #14 tab 05/05/19 The following prescriptions were given: Ciprofloxacin [Cipro] 500 mg PO BID #14 tab Transmission Status: Pending to [facility] #30 Primary Care Physician: Kendell Morgan DO [Primary Care Provider] - Please follow up with your Primary Care Physician in: one week Test Results: Test results from this visit will be discussed in further detail at your follow-up appointment, if applicable. Please Follow Up With: Evan Flores MD When: 1-2 weeks Proposed Discharge Date: 05/05/19
--- NOTE | 2019-05-05 09:56 | PCM.DC.SUM ---
Discharge Date and Diagnosis Date of Admission: 05/03/19 Date of Discharge: 05/05/19 - Primary Discharge Diagnosis Active and Suspected Problems Right-sided infectious colitis (Acute) - Secondary Discharge Diagnosis Chronic Problems Asthma (Chronic) Hospital Course and Treatment Imaging Results: Diagnostic Data Abdomen/Pelvis CT 05/03/19 12:14 IMPRESSION: There is evidence of colitis of the right hemicolon. Electronically Signed: Pablito Staley, at 14:36 EDT , Service support , general surgery- Dr Flores Operations: None Procedures: None Summary of Care Provided: The patient is a 34 year old F with a past medical history of asthma. He was admitted to the ED on 05/03/2019 with a complaint of abdominal pain which is mainly right-sided with associated diarrhea. Luminal pain was rated about 8 out of 10 in intensity. She had no urinary symptoms. She denied any nausea or vomiting. CT of the abdomen done showed right-sided colitis from the cecum up to the transverse region. She was admitted and managed for colitis likely infectious. General surgery was consulted and they agreed with this assertion. She was initially kept n.p.o. and hydrated with IV fluids. She was started on IV ciprofloxacin and IV metronidazole. Stool enteric bacteriology showed complained of back to species and urine also cultured presumptive E. coli. Stool occult blood was positive which was thought to be due to the diarrhea. C Diff was negative. Patient improved significantly and was able to tolerate clear liquids and was gradually progressed to a full liquid diet. Diarrhea frequency also reduced. She was discharged home on 05/05/2019 with a prescription for p.o. ciprofloxacin. She is to follow-up with her primary care doctor within 1 week. Patient was counseled that she should maintain a clean environment and also to drink bottled water if she is not drinking bottled water. Patient seen and examined prior to discharge. She felt much better and had no complaints. She has been able to tolerate a diet. She had had 2 diarrheal episodes but said it was improving. Labs and vitals reviewed. Home medication reviewed and reconciled. o/e: Vital Signs Height 5 ft 3 in Weight: 178 lb Weight in Pounds 178.0 lbs Pulse Ox 100 Temperature 98.8 F Pulse Rate 54 Respiratory Rate 16 Blood Pressure 119/70 Blood Pressure Position Sitting [] General: Alert, Oriented x3, Cooperative, No apparent distress HEENT: Atraumatic, PERRLA, EOMI, Normocephalic Oral: Moist Mucosa Neck: Supple, No JVD, Negative Carotid Bruits Lungs: Clear to auscultation, Normal air movement, No rhonchi, No wheeze Cardiovascular: Regular rate, Regular Rhythm, Normal S1, Normal S2, No murmurs Abdomen: Bowel Sounds Present, Soft, - - minimal tenderness in right lower quadrant, no guarding or rebound tenderness Extremities: No clubbing, No cyanosis, No edema, Capillary Refill Less than 3 Seconds Skin: No rashes, No breakdown Musculoskeletal: No Tenderness to Palpation of Joints or Extremities Lymphatic: No Cervical, Supraclavicular, or Inguinal Adenopathy Neurological: Cranial nerves II-XII grossly intact, Neuro grossly intact, Motor Exam 5/5 strength throughout Psych/Mental Status: Normal Affect, Appropriate, Alert and oriented to time, place, person, mood and affect Plan as above. - Physical Exam Vital Signs Temp Pulse Resp BP Pulse Ox 98.9 F 56 L 14 107/76 97 05/05/19 08:00 05/05/19 08:00 05/05/19 08:00 05/05/19 08:00 05/05/19 08:00 Oxygen Delivery Method Room Air Weight: 178 lb Body Mass Index (BMI) 31.5 Intake and Output for Last 24 Hours 05/03/19 05/04/19 05/05/19 23:59 23:59 23:59 Intake Total 1803.34 / 2063.34 4381.67 / 4381.67 1425 / 1425 Output Total 1600 / 1600 Balance 1803.34 / 1463.34 2781.67 / 2781.67 1425 / 1425 Microbiology Past 72 Hours 05/03/19 12:20 Urine Culture - Final Urine, Clean Catch Presumptive E. coli 05/04/19 08:10 Enteric Bacteriology - Final Stool Campylobacter species 05/04/19 03:32 C. difficile DNA Amplification - Final Stool 05/04/19 03:32 Stool Lactoferrin - Final Stool 05/04/19 03:32 Stool Occult Blood (WILLY) - Final Stool Occult Blood Positive Discharge Diet: No Restrictions Discharge Activity: Return to Normal Activity Weight Bearing Status: Weight bearing as tolerated Call your doctor if you observe: Fever of 101 or Higher, - - abdominal pain, diarrhea Home Medications: Medications to take at Discharge Sertraline HCl [Zoloft] 50 mg PO DAILY 12/15/14 Albuterol Inhaler [Ventolin Hfa] 2 puff INHALATION Q4H PRN PRN 01/05/15 Fluticasone 44 Mcg [Flovent 44 Mcg] 1 puff INHALATION DAILY 05/03/19 Ciprofloxacin [Cipro] 500 mg PO BID #14 tab 05/05/19 Following Prescrptions Were Given to Patient: Ciprofloxacin [Cipro] 500 mg PO BID #14 tab Transmission Status: Received by [facility] #30 Primary Care Physician: Kendell Morgan DO [Primary Care Provider] - Please follow up with your Primary Care Physician in: one week Please Follow Up With: Evan Flores MD When: 1-2 weeks Patient Instructions: Campylobacter Culture (Stool), Treating Diarrhea, Bacterial Gastroenteritis Disposition: Home Minutes spent on discharge:: 35 Patient Condition:: Stable Medical Necessity - Tobacco Use Smoking Status: Current every day smoker Tobacco Use: Cigarettes Meaningful Use Info Meaningful Use Diagnoses (Choose all that apply): None applicable Code Visit Inpatient E&M: 82903 [facility] Hosp
[2019-05-05 11:40] VITALS: BP 119/70; PULSE 54; RESP 16; TEMP 37.1; O2SAT 100
--- NOTE | 2019-05-06 15:07 | CASEMGMT ---
MERCEDEZ CM Discharge Follow-up Phone Call: JONATHAN: Joslyn Strata: 3 Call Date: 05/06/19 Discharge Date: 05/05/19 Time of Call: 1505 Duration: 2 minutes ? Admitting Diagnosis: Infectious colitis Discharge follow-up call completed with pt. Pt denies any concerns since discharge. States her diarrhea continues to decrease. Pt states she was able to obtain her Cipro. Pt states she has been able to eat and drink but has limited her diet to soft foods as tolerated and will increase her diet gradually. Pt states she has not made her follow-up appointments yet but is aware that she needs to follow up with both her PCP and Dr. Flores. Pt denies any questions or needs at this time.
== END 2019-05-05 11:40 | disposition home or self-care (01) | DRG 249 ==
LOC: ED 13:07 → MS3 16:11
PROVIDERS: Admitting Provider Internal Medicine; Emergency Provider Physician Assistant Medical; Family Provider Student in an Organized Health Care Education/Training Program; PCP Student in an Organized Health Care Education/Training Program; Referring Provider Internal Medicine; Visit Provider Student in an Organized Health Care Education/Training Program
DX: A09 Infectious gastroenteritis and colitis, unspecified (principal); J45.909 Unspecified asthma, uncomplicated; F32.9 Major depressive disorder, single episode, unspecified; F17.210 Nicotine dependence, cigarettes, uncomplicated; E66.3 Overweight; Z68.31 Body mass index [BMI] 31.0-31.9, adult; Z79.51 Long term (current) use of inhaled steroids; Z79.899 Other long term (current) drug therapy
CPT/HCPCS: 36415; 74177; 80048; 80053; 81001; 82274; 83630; 83690; 84443; 84703; 85025; 87086; 87088; 87177; 87186; 87209; 87493; 87506; 94640; 99284; 99406; J7030; Q9967; J0744; J2405

== ENCOUNTER 2021-06-03 14:22 | Emergency (ER) | payer MEDICAID, SELFPAY ==
[2021-06-03 14:23] VITALS: BP 132/64; PULSE 80; RESP 16; TEMP 36.9; O2SAT 99; BMI 28.0
--- NOTE | 2021-06-03 14:55 | EX.ED.DYSGE1 ---
HPI History of Present Illness Chief Complaint: Abscess Narrative Narrative: Patient presenting with small abscess on the right lower abdomen. She states this is common gone multiple times. This time she is not able to get it to drain. She denies fever, chills. She is eating and drinking normally. Is making normal urine and stool. She denies any history of MRSA but states she has had abscesses on her right arm and her right axilla previously. Patient states otherwise she is healthy. PFSH PFSH Home Medications sertraline 50 mg PO DAILY 12/15/14 [History Last Taken 05/02/19] albuterol sulfate [Ventolin HFA] 2 puff INHALATION Q4H PRN PRN 01/05/15 [History Last Taken 06/17/15] fluticasone propionate 1 puff INHALATION DAILY 05/03/19 [History Last Taken 05/02/19] ciprofloxacin HCl 500 mg PO BID #14 tab 05/05/19 [Rx Last Taken Unknown] Allergy/AdvReac Type Severity Reaction Status Date / Time No Known Allergies Allergy Verified 11/13/17 07:20 Social History Smoking Status: Current every day smoker tobacco type: cigarettes ROS ROS ED Constitutional Constitutional ED: Denies chills or fever(s) Eyes Eyes: Denies blurry vision or change in vision ENT ENT ED: Denies rhinorrhea or sore throat Cardiovascular Cardiovascular: Denies chest pain or palpitations Respiratory/Chest Respiratory/Chest: Denies cough, dyspnea or sputum Gastrointestinal Gastrointestinal: Denies abdominal pain, nausea or vomiting Genitourinary Genitourinary ED: Denies dysuria or hematuria Musculoskeletal Musculoskeletal: Denies arthralgias, back pain, myalgias or neck pain Integumentary Reports other Details: Abscess right lower abdomen Neurologic Neurologic: Denies headache(s) or weakness EXAM Physical Exam Const Vital Signs: 06/03/21 14:23 Temperature 98.4 F Temperature Source Temporal Pulse Rate 80 Respiratory Rate 16 Blood Pressure 132/64 H Blood Pressure Mean 86 Pulse Ox 99 Oxygen Delivery Method Room Air Positive well nourished General Appearance ED: NAD HEENT Reports moist mucous membranes Negative for trauma Eyes PERRL and EOMs intact bilaterally Resp normal respiratory effort and clear to auscultation bilaterally Cardio regular rate and regular rhythm GI non-tender and non-distended Palpation: soft Neuro oriented x3 and CN's II-XII intact bilaterally Sensorium / Orientation: alert Psych mental status grossly normal Skin Skin Narrative: 2 cm circular abscess which is superficial on the right lower abdomen. Very mild surrounding erythema. Minimal tenderness to palpation. No drainage. MDM MDM MDM Narrative Medical decision making narrative: Patient presenting with superficial abscess on the right lower abdomen. There is some surrounding erythema. Patient's wounds cleaned with chlorhexidine. 3 cc of lidocaine with epinephrine injected centrally with good anesthesia. Small cruciate incision made centrally. Wound was deloculated. Wound was irrigated with 500 cc of sterile saline. Patient tolerated procedure well. Patient counseled she will need to do sits baths at home. Due to surrounding cellulitis we will start her on Bactrim. Patient given wound care instructions. Discharged home in stable condition. Impression: 1. Abscess Discharge Plan Triage Chief Complaint: Abscess ED Provider: Hay Honeycutt Dx/Rx/DC Orders Prescriptions: No Action sertraline 50 MG tablet 50 mg PO DAILY RF: 0 albuterol sulfate [Ventolin HFA] 1 INHALER inhaler 2 puff inhalation Q4H PRN PRN (Reason: Sob &/Or Wheezing) RF: 0 fluticasone propionate 44 inhaler 1 puff inhalation DAILY RF: 0 ciprofloxacin HCl 500 MG tablet 500 mg PO BID Qty: 14 RF: 0 Primary Care Provider: Kendell Morgan
[2021-06-03] MEDS: Lidocaine 1% /Epi 1:100 (20ml) 20 ML Vial INFILT (15:01)
[2021-06-03 15:33] VITALS: BP 118/59; PULSE 71; RESP 16; O2SAT 98
[2021-06-03] MEDS: Smz/Tmp Ds Tablet 1 TABLET PO (15:34)
== END 2021-06-03 15:35 | disposition home or self-care (01) ==
PROVIDERS: Emergency Provider Student in an Organized Health Care Education/Training Program; PCP Student in an Organized Health Care Education/Training Program
DX: L02.211 Cutaneous abscess of abdominal wall (principal); F17.210 Nicotine dependence, cigarettes, uncomplicated
CPT/HCPCS: 10060; 99283

== ENCOUNTER 2021-06-22 11:42 | Emergency (ER) | payer MEDICAID, SELFPAY ==
[2021-06-22 11:43] VITALS: BP 129/55; PULSE 80; RESP 16; TEMP 36.4; O2SAT 99; BMI 28.0
[2021-06-22 11:54] VITALS: O2SAT 97
--- NOTE | 2021-06-22 12:26 | RAD_ITS ---
STUDY: X-RAY CHEST REASON FOR EXAM: Female, 36 years old. Sore throat. Cough. TECHNIQUE: Single AP portable view of the chest. COMPARISON: Comparison is made with prior examination of 11/13/2012. FINDINGS: The lungs are clear and expanded. There is no demonstrated pleural abnormality. Normal size heart. Normal mediastinum and sherry. Normal visualized pulmonary arteries. Normal visualized aortic arch and descending thoracic aorta. Normal visualized thoracic spine. Normal visualized ribs, clavicles, and shoulders. There is no demonstrated abnormality of the visualized soft tissue structures of the upper abdomen. RAD/Chest 1 View (Portable) IMPRESSION: Normal x-ray examination of the chest. Electronically Signed: Pablito Staley MD at 13:06 EDT , Service support ,
--- NOTE | 2021-06-22 12:26 | ED.VIS.DYS ---
HPI History of Present Illness Chief Complaint: Cough Informant: patient Onset/Context/Timing Onset: Days Context: gradual Timing: Continuous Current Severity: Mild Maximum Severity: Mild Worsened by: Nothing Relieved by: Nothing Associated Symptoms cough; Negative for green sputum Chest Pain: Positive for None Narrative Narrative: 1-year-old female history of asthma is a smoker. Patient was fully vaccinated for Covid several months ago with the maternal shot. She states she has had cough shortness of breath and wheezing for the last week. A week ago on Monday she is was seen in urgent care they started her on prednisone and doxycycline. She is also using an inhaler. She is out of the medications and she feels no better. She denies vomiting diarrhea or fever. No hemoptysis. PE Risk Factors: Negative for Cancer, OCP + Smoking + > 35, Prior DVT or PE, Recent immobilization, Recent surgery and Recent travel Prior similar symptoms: Yes Recent Illness/Hospitalization: No PFSH PFSH Home Medications sertraline 50 mg PO DAILY 12/15/14 [History Last Taken 05/02/19] albuterol sulfate [Ventolin HFA] 2 puff INHALATION Q4H PRN PRN 01/05/15 [History Last Taken 06/17/15] fluticasone propionate 1 puff INHALATION DAILY 05/03/19 [History Last Taken 05/02/19] ciprofloxacin HCl 500 mg PO BID #14 tab 05/05/19 [Rx Last Taken Unknown] sulfamethoxazole-trimethoprim [Bactrim DS] 1 tab PO BID #14 tab 06/03/21 [Rx Last Taken Unknown] Allergy/AdvReac Type Severity Reaction Status Date / Time No Known Allergies Allergy Verified 06/22/21 11:45 Social History Smoking Status: Current every day smoker tobacco type: cigarettes ROS ROS ED ROS Narrative Cough and shortness of breath. Wheezing. Review of Systems ROS Unobtainable: Denies due to encephalopathy Constitutional Constitutional ED: Denies fever(s) Eyes Eyes: Denies change in vision ENT ENT ED: Denies ear pain Cardiovascular Cardiovascular: Denies chest pain Respiratory/Chest Respiratory/Chest: Reports cough; Denies dyspnea Gastrointestinal Gastrointestinal: Denies abdominal pain Genitourinary Genitourinary ED: Denies dysuria Musculoskeletal Musculoskeletal: Denies myalgias Integumentary Denies rash Neurologic Neurologic: Denies headache(s) Psychiatric Psychiatric: Denies depression Endocrine Endocrinology: Denies polyuria Hematologic/Lymphatic Hematologic/Lymphatic: Denies easy bruising Allergic/Immunologic Allergic/Immunologic ED: Denies urticaria EXAM Physical Exam Narrative Exam Narrative: 36-year-old female no acute distress vital signs stable afebrile. Pulse ox 9 9% on room air no signs hypoxia. HEENT exam unremarkable. Moist mucous membranes. Neck nontender no JVD. Lungs dry cough. Expiratory wheezes. No rales or rhonchi. Equal symmetrical. Heart regular rhythm no murmur. Abdomen soft nontender. Moving all 4 extremities calves nontender without edema or cords. Const Vital Signs: 06/22/21 11:43 06/22/21 11:54 Temperature 97.5 F L Temperature Source Temporal Pulse Rate 80 Respiratory Rate 16 Respiratory Effort Normal Non-Labored Respiratory Depth Normal Respiratory Pattern Normal Blood Pressure 129/55 H Blood Pressure Mean 79 Pulse Ox 99 Oxygen Delivery Method Room Air Room Air Positive well nourished and well developed; Negative for obese, cachectic, contractures or unkempt General Appearance ED: well developed and NAD; Negative for unkempt, cachectic or contractures Nutritional Appearance: Negative for cachectic or obese HEENT Reports moist mucous membranes atraumatic; Negative for trauma or tenderness Eyes PERRL and EOMs intact bilaterally Neck no lymphadenopathy, supple, no meningeal signs and no JVD General: Negative for tenderness Resp normal respiratory effort and No clear to auscultation bilaterally Auscultation: wheezes; Negative for rales or rhonchi Cardio regular rate, regular rhythm, S1 normal heart sound, S2 normal heart sound and no murmurs GI non-tender, non-distended and no masses Auscultation: normoactive bowel sounds Palpation: soft; Negative for tender, guarding or rebound tenderness present Back/Spine no CVA tenderness and normal to inspection General Back: Negative for CVA tenderness Extremity normal to inspection General Extremety ED: Negative for edema or tenderness General Extremity: Negative for edema Neuro oriented x3 and CN's II-XII intact bilaterally Sensorium / Orientation: alert, oriented to person, oriented to place and oriented to time; Negative for confused, lethargic or stuporous Motor Exam: strength 5/5 throughout Psych mental status grossly normal Appearance: Negative for unkempt Thought Process: normal thought process Skin no wounds Lesions: no lesions Rashes: no rashes MDM MDM MDM Narrative Medical decision making narrative: 28-year-old female most likely viral URI. Will be tested for Covid and chest x-ray obtained. She is wheezing and will need to be on steroids. Repeat exam she is doing well at 89 will be discharged home. She and I discussed her test results. She will be started on steroids. She is already completed a course of antibiotics. Lab Data Attestation: I reviewed the patient's lab results. Radiography Chest X-Ray - ED: 1 View and Read by ED Physician Diagnostic Testing: Clinical Impression(s) from Imaging Studies Chest X-Ray 06/22/21 12:26 IMPRESSION: Normal x-ray examination of the chest. Electronically Signed: Pablito Staley MD at 13:06 EDT , Service support , Portable chest x-ray single view interpreted by myself and radiologist shows no acute abnormality. Discharge Plan Triage Chief Complaint: Cough ED Provider: Ruben Oliveira Dx/Rx/DC Orders Prescriptions: No Action sertraline 50 MG tablet 50 mg PO DAILY RF: 0 albuterol sulfate [Ventolin HFA] 1 INHALER inhaler 2 puff inhalation Q4H PRN PRN (Reason: Sob &/Or Wheezing) RF: 0 fluticasone propionate 44 inhaler 1 puff inhalation DAILY RF: 0 ciprofloxacin HCl 500 MG tablet 500 mg PO BID Qty: 14 RF: 0 sulfamethoxazole-trimethoprim [Bactrim DS] 800-160 mg tablet 1 tab PO BID Qty: 14 RF: 0 Primary Care Provider: Kendell Morgan
[2021-06-22 14:20] VITALS: BP 135/85; PULSE 88; RESP 18; TEMP 37; O2SAT 96
== END 2021-06-22 14:24 | disposition home or self-care (01) ==
PROVIDERS: Emergency Provider Emergency Medicine; PCP Student in an Organized Health Care Education/Training Program
DX: R05.9 Cough, unspecified (principal); R06.02 Shortness of breath; R06.2 Wheezing; F17.210 Nicotine dependence, cigarettes, uncomplicated
CPT/HCPCS: 71045; 87426; 99282

== ENCOUNTER 2021-10-18 05:50 | Emergency (ER) | payer MEDICAID, SELFPAY ==
--- NOTE | 2021-10-18 05:30 | EKG12_ITS ---
Test Reason : CP Blood Pressure : / mmHG Vent. Rate : 067 BPM Atrial Rate : 067 BPM P-R Int : 130 ms QRS Dur : 082 ms QT Int : 430 ms P-R-T Axes : 051 047 045 degrees QTc Int : 454 ms Normal sinus rhythm Normal ECG Confirmed by ELOINA SHERIDAN MD ([id number]), tape editor TERRANCE WITT ([id number]) on 10/21/2021 1:18:56 PM Referred By: EKATERINA Confirmed By:ELOINA SHERIDAN MD
[2021-10-18 05:50] VITALS: BP 111/70
[2021-10-18 05:51] VITALS: PULSE 68; RESP 18; TEMP 36.3; O2SAT 100; BMI 37.9
--- NOTE | 2021-10-18 06:08 | EDS_ITS ---
HPI History of Present Illness Chief Complaint: Chest Other Narrative Narrative: Patient presents with left upper lumbar/lower thoracic musculoskeletal pain which has had for couple of days. She tried heat and Tylenol as well as ibuprofen. This is worse with movements. Sometimes it rad iates to the left ribs. She not feeling short of breath. She denies any abdominal pain. She has no urinary complaints or vaginal complaints. No constipation or diarrhea. She has not had a fever or cough. PFSH PFSH Home Medications lidocaine [Lidoderm] 1 patch TOPICAL DAILY #1 ea 10/18/21 [Rx Last Taken U nknown] naproxen [Naprosyn] 500 mg PO BID PRN #30 tab 10/18/21 [Rx Last Taken Unknown] tizanidine 4 mg PO Q8H PRN #14 tab 10/18/21 [Rx Last Taken Unknown] Allergy/AdvReac Type Severity Reaction Status Date / Time No Known Allergies Allergy Verified 06/22/21 11:45 Social History Smoking Status: Current every day smoker tobacco type: cigarettes ROS ROS ED Constitutional Constitutional ED: Denies chills or fever(s) Eyes Eyes: Denies blurry vision or change in vision ENT ENT ED: Denies rhinorrhea or sore throat Cardiovascular Cardiovascular: Denies chest pain Respiratory/Chest Respiratory/Chest: Denies cough or dyspnea Gastrointestinal Gastrointestinal: Denies abdominal pain, constipation, diarrhea, nausea or vomit ing Genitourinary Genitourinary ED: Denies dysuria, hematuria or urinary frequency Musculoskeletal Musculoskeletal: Reports back pain Integumentary Denies Abrasions or rash Neurologic Neurologic: Denies headache(s), paresthesias or weakness Psychiatric Psychiatric: Denies anxiety or depression EXAM Physical Exam Const Vital Signs: 10/18/21 05:50 10/18/21 05:51 10/18/21 05:55 Temperature 97.4 F L Temperature Source Temporal Pulse Rate 68 Respiratory Rate 18 Respiratory Effort Normal Blood Pressure 111/70 Blood Pressure Mean 83 Pulse Ox 100 Oxygen Delivery Method Room Air Positive well nourished General Appearance ED: NAD HEENT atraumatic Eyes PERRL and EOMs intact bilaterally Resp normal respiratory effort and clear to auscultation bilaterally Resp Narrative: Equal symmetric breath sounds and chest wall rise. Cardio regular rhythm Rate: regular rate Back/Spine normal to inspection Back/Spine Narrative: Tenderness to palpation at the level of the thoracolumbar junction in the soft tissue of the paraspinal musculature on the left. No bony deformities or tenderness. Left ribs nontender to palpation. No crepitance. Neuro oriented x3, CN's II-XII intact bilaterally, moves all extremities and no focal motor deficits Sensorium / Orientation: alert MDM MDM MDM Narrative Medical decision making narrative: 36-year-old female presenting with left lower back pain that radiates to the left posterior ribs. She does not have shortness of breath. She denies any other symptoms. This is worsened by movement. She tried heat, NSAIDs, Tylenol. This does sound musculoskeletal in nature. Patient did have a protocol EKG performed prior to my evaluation which was a sinus rhythm at 67 bpm without sign of ischemic change. I do not believe she needs blood work or imaging. This was discussed with the patient and she is amenable. Patient will be treated with Toradol and a Lidoderm patch in the ED. She is given a prescription for muscle relaxers, Naprosyn, Lidoderm patches. I could not give her muscle relaxers today in the emergency room because she is driving. I counseled her to follow-up with her primary care physician and return as needed to the emergency room Impression: 1. Muscle strain Discharge Plan Triage Chief Complaint: Chest Other ED Provider: Hay Honeycutt Dx/Rx/DC Orders Instructions: ED Muscle Spasm Prescriptions: New tizanidine 4 mg tablet 4 mg PO Q8H PRN (Reason: muscle spasticity) Qty: 14 RF: 0 naproxen [Naprosyn] 500 mg tablet 500 mg PO BID PRN (Reason: pain) Qty: 30 RF: 0 lidocaine [Lidoderm] 5 % adhesive patch,medicated 1 patch topical DAILY Qty: 1 RF: 0 Primary Care Provider: Kendell Morgan Referrals: Kendell Morgan DO [Primary Care Provider] - Disposition Disposition: Home, Self Care
[2021-10-18] MEDS: Ketorolac 15 MG/ML Vial IM (06:14)
[2021-10-18] MEDS: Lidocaine 5% Patch 1 PATCH TOPICAL (06:14)
[2021-10-18 06:19] VITALS: BP 106/65; PULSE 60; RESP 20; O2SAT 100
== END 2021-10-18 06:29 | disposition home or self-care (01) ==
PROVIDERS: Emergency Provider Student in an Organized Health Care Education/Training Program; PCP Student in an Organized Health Care Education/Training Program; Visit Provider Student in an Organized Health Care Education/Training Program
DX: S39.012A Strain of muscle, fascia and tendon of lower back, initial encounter (principal); X58.XXXA Exposure to other specified factors, initial encounter; F17.210 Nicotine dependence, cigarettes, uncomplicated
CPT/HCPCS: 93005; 96372; 99283; A4216

== ENCOUNTER 2022-12-16 07:34 | Day surgery (SDC) | payer MEDICAID, SELFPAY ==
[2022-12-08 16:30] LABS: Internal QC Validated? YES +Cl - CLEAR BKGD; Pregnancy, Urine Negative Negative
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
[2022-12-14 12:49] LABS: Absolute Lymphocyte Count 3.31 X10^3/uL (0.83-4.51); Absolute Neutrophil Count 5.2 X10^3/uL (2.0-7.7); Basophil# 0.07 X10^3/uL; Basophil% 0.8 % (0-1); Eosinophil# 0.16 X10^3/uL; Eosinophils% 1.7 % (0-5); Hemoglobin 13.4 g/dL (12.0-15.0); Lymphocyte # 3.31 X10^3/ul (0.83-4.51); Lymphocyte % 35.7 % (19-41); Mean Corp Hgb Conc 33.5 g/dL (32-36); Mean Corpuscular Hgb 31.6 pg (27.0-32.0); Mean Corpuscular Volume 94.3 fL (81-99); Mean Platelet Vol. 11.4 fl (6.2-12.0); Monocyte# 0.54 X10^3/uL; Monocyte% 5.8 % (0-10); NRBC Flagged by Analyzer 0 % (0-5); Neutrophil # 5.16 X10^3/uL (2.7-7.7); Neutrophil % 55.8 % (47-70); Platelet Count 255 K/mm3 (150-450); RBC Distribution Width SD 48.5 fl (35.1-43.9); Red Blood Count 4.24 M/mm3 (4.2-5.4); White Blood Count 9.3 K/mm3 (4.4-11.0)
[2022-12-14 13:07] LABS: Magnesium 2.2 mg/dL (1.6-2.6)
[2022-12-16] VITALS (13 sets, daily range): BP systolic 93–119; BP diastolic 52–82; PULSE 54–84; RESP 12–18; TEMP 36.4–37.4; O2SAT 96–100; BMI 36.2
[2022-12-16 08:07] LABS: Internal QC Validated? YES +Cl - CLEAR BKGD; Pregnancy, Urine Negative Negative
[2022-12-16] MEDS: Magnesium 1 GM over 15 mins IV (08:25)
[2022-12-16] MEDS: Scopolamine 1mg/72hr Patch 1 PATCH TD (08:26)
[2022-12-16] MEDS: Phenazopyridine 95 MG Tablet 190 MG PO (08:27)
[2022-12-16] MEDS: Acetaminophen 500 MG Tablet 1000 MG PO (08:27)
[2022-12-16] MEDS: Gabapentin 600 MG Tablet PO (08:28)
[2022-12-16] MEDS: Enoxaparin 40 MG/0.4 ML Syringe SC (08:28)
[2022-12-16] MEDS: Celecoxib 200 MG Capsule 400 MG PO (08:28)
[2022-12-16] MEDS: Lactated Ringers 1,000 ML 40 ML IV (08:33)
[2022-12-16 09:01] LABS: Bedside Glucose 92 mg/dL (74-106)
[2022-12-16] MEDS: Cefazolin 2 GM in 0.9% Normal Saline 100 ML IV (09:17)
[2022-12-16] MEDS: dexAMETHasone 4 MG/ML Vial 8 MG IV (09:22)
--- NOTE | 2022-12-16 09:40 | HYST_PTH ---
PATIENT: LEONARD GRIMM LOC: [facility] [place] U#:[id number] AGE/SX: 37/F ROOM: RE12/16/[address]: Dr. Serena Chang MD : [id number] BED: DIS: 12/16/2022 SPEC #: [id number] RECD: 12/16/22 12:36 STATUS: ANDREE REAlberta #: [id number] COLLIN: 12/16/22 09:[address]: Serena Chang DEPT: SURGICAL PATHOLOGY RECD BY: Emani Oates ENTERED: 12/16/22 12:56 SP TYPE: HYSTERECT OTHR DR: MD Dr. Kendell Benavides DO Tissues: Uterus, NOS Procedures: Surgery Specimen Level V HEADER OPERATION: ERAS, total laparoscopic hysterectomy, bilateral salpingectomy PRE-OP DIAGNOSIS: Menorrhagia, metrorrhagia TISSUE SUBMITTED: Uterus, cervix, bilateral fallopian tubes, left ovary MICROSCOPIC DIAGNOSIS Uterus, cervix, bilateral fallopian tubes and left ovary, hysterectomy, bilateral salpingectomy and left oophorectomy: Cervix ? mild chronic cystic cervicitis. Endometrium ? exogenous hormone effects. Myometrium - no pathologic diagnosis. Bilateral fallopian tubes - no pathologic diagnosis. Left ovary ? physiologic corpus luteal and follicular cysts. SJ:rg 12/19/2022 MICROSCOPIC DESCRIPTION Slides are reviewed. GROSS DESCRIPTION Received in fixative is one container labeled with the patient's name and designated uterus, cervix, bilateral fallopian tubes, left ovary. The specimen consists of a hysterectomy specimen consisting of uterus with cervix, attached left fallopian tube and ovary and detached right fallopian tube. The uterus with cervix weighs 102 gm and measures 11.0 x 8.0 x 4.0 cm. A Filshie clip is noted close to the right cornu end/proximal portion of the right fallopian tube, which appears intact. The serosal surface is petersen, glistening. The ectocervical mucosa is unremarkable. The external os is slit-like in contour and covered with hemorrhagic mucoid material. The endocervical canal measures 3.5 cm in length and it is filled with hemorrhagic mucoid material. The triangular endometrial cavity measures 5.0 cm in length and up to 2.5 cm in width. A white T-shaped intrauterine device is present in the endometrial cavity and it is not invading into the underlying myometrium. The T-arm of the intrauterine device is pointing downward. The horizontal arm measures 3.0 cm in length and vertical arm of the intrauterine device measures 3.5 cm in length. A two-prong suture is also present attached to this intrauterine device and it measures 6.0 cm in length. The endometrium is petersen, glistening without any mass lesion and measures 0.1 cm in thickness. Sections of the uterine wall do not reveal any mass lesion and it measures up to 2.2 cm in thickness. The detached right fallopian tube measures 4.5 cm in length and 0.3 cm in diameter. The fimbrial end is identified. Sections do not reveal any mass lesion. The left fallopian tube measures 6.5 cm in length and 0.5 cm in diameter. The fimbrial end is identified. The proximal portion of the fallopian tube also shows a Filshie clip which appears intact. No tubo-ovarian adhesions are identified. Sections reveal unremarkable cut surfaces. The soft to cystic left ovary measures 3.5 x 2.5 x 2.0 and weighs 1.2 gm. The outer surface is smooth without any papillation. Sections reveal a hemorrhagic corpus luteal cyst measuring 1.5 cm in greatest dimension. A few smaller cysts are also noted filled with clear fluid, largest measuring 0.5 cm in greatest dimension. [employer] sections are submitted in ten cassettes as follows: 1 - anterior cervix, 2 - posterior cervix, 3 & 4 - anterior uterine wall, 5 & 6 - posterior uterine wall, 7 - right fallopian tube, 8 - left fallopian tube and left ovary, 9 & 10 - more sections of left ovary. / SJ:yaron 12/16/2022 TC:5 CPT: 69788
[2022-12-16] MEDS: Bupivacaine 0.25% 30 ML Vial (10:00)
--- NOTE | 2022-12-16 11:25 | PCM.OPRPT ---
Report of Operation Date of Procedure: 12/16/22 Pre-Operative Diagnosis: AUB, adenomyosis Post-Operative Diagnosis: same, extensive adhesions of left of ovary to pelvic sidewall and uterus to anterior abdominal wall Surgery/Procedure Performed:: TLH, bilateral salpingectomy, left oophorectomy Description of Surgical Findings:: Left ovarian cyst. Extensive adhesions of left ovary to side wall suspending ovary to the side wall and uterus to anterior abdominal wall suspending uterus, normal right ovary. otherwise unremarkable peritoneal cavity, normal vagina and bladder Surgeon: Serena Chang cotton cleaner: She Fontenot Type of Anesthesia: Epidural Anesthesiologist: Marcos Pereira Special Medications: none Specimen's removed: uterus, cervix, bilateral fallopian tubes, left ovary Drains: none Estimated Blood Loss (mL): 100 Fluids Replaced: 800 Description of Procedure: The patient was taken to the operating room where she was prepped and draped in the dorsal lithotomy position. Her arms were tucked to the side and padded and her legs were placed in the yellowfin stirrups. Care was taken to ensure that she was placed in a neurologically safe and neutral position. A weighted speculum was placed in the vagina and the anterior lip of the cervix was grasped with a single-tooth tenaculum. The cervix sounded to 11 centimeters. Two 0 Vicryl sutures were secured to the cervix at 3 and 9:00. The 3 cm uterine cottonseed meat presser manipulator was placed into the cervix and the balloon inflated. The stay sutures were placed through the cup and secured down to the cervix. Once the uterine cottonseed meat presser was secured to the cervix the Carrillo catheter was placed to straight drain. Attention was turned to the abdominal portion of the case. Before skin incisions were made they were infiltrated with 0.5% Marcaine solution for local anesthetic. A 5 mm intraumbilical incision was made and while tenting the anterior abdominal wall up with towel clamps a 5 mm blade less trocar and sleeve were advanced into the peritoneal cavity using the Visiport. Peritoneal placement was confirmed with the laparoscope the pneumoperitoneum was created, and the underlying abdominal contents were intact. The patient was placed in Trendelenburg and the above findings were noted. Right 5 mm and left lateral 7 mm trochars were placed under direct visualization without difficulty. Rapid insufflator was used. There were some dense adhesions of the uterus to the anterior abdominal wall tethering the uterus to it. The left tube and ovary were tethered to the anterior abdominal wall and pelvic sidewall. The ureters were identified. We then started to take down the adhesions of the left ovary. Dissection of the bladder adhesions was initiated as well. They were very dense and this added to the difficulty of the case and added approximately 35 minutes to the case to take down these adhesions carefully without injury to the bladder or pelvic sidewall. The antimesenteric portion of the right tube was clamped sealed and transected serially on with the LigaSure device. The right round ligament was clamped sealed and transected and a window was made in the peritoneum. The right utero-ovarian ligament was then clamped sealed and transected with the LigaSure device and the pedicles were hemostatic. On the left side the left infundibulopelvic ligament was identified, clamped, sealed and transected with the LigaSure device. Some more adhesions had to be taken down and then the round ligament was clamped, sealed and transected. The bladder flap was dissected down some more with the LigaSure device and blunt dissection and the uterine arteries were then skeletonized. The uterine arteries were clamped sealed and transected on both sides with the LigaSure device. Then along the cardinal ligament uterine arteries adjacent to the cervix were clamped sealed and transected with the LigaSure device to move them away from the vaginal cuff angle. At this point the pedicles were all examined and found to be hemostatic. The bladder flap was rechecked and found to be adequately down. The monopolar L-hook was then used to enter the anterior vagina. The vaginal manipulator cup was noted in the vaginal colpotomy incision was made circumferentially around the cup. When the 3 and 9:00 positions of the cervicovaginal junction were reached these were clamped sealed and transected with the LigaSure device to secure any small remaining vessels. At this point the pedicles were hemostatic from above and attention was turned to the vaginal portion of the case again. The uterus was brought intact out through the vaginal colpotomy incision along with the tubes There was some bleeding from a vessel along the left pelvic sidewall that was grasped with a Carmela clamp, and a suture ligature was placed around it and was hemostatic. Vaginal angle sutures were placed on both sides with 0 Vicryl sutures and care was taken to ensure that the uterosacral ligament was secured into this stitch. The remainder the vagina was then closed horizontally with interrupted 0 Vicryl sutures. The cuff was hemostatic vaginally. The Carrillo catheter was removed and a cystoscopy was performed. The bladder appeared normal and was intact. Both ureteral orifices were noted and both ureteral jets were seen. The cystoscope was removed A sponge stick was placed in the vagina to help place traction against the vaginal cuff and the pneumoperitoneum was re-created. We examined the bladder from the peritoneal cavity and it was intact. It was then deflated with a Carrillo catheter. The suction accounts receivable clerk was used to remove any blood and clots from the peritoneal cavity. The pedicles were reexamined and found to be hemostatic. The vaginal cuff was hemostatic. Some Claude was placed over the cuff and the pedicles and no active bleeding was noted through the Claude. The right and left lateral ports were taken out and the sites were hemostatic. The pneumoperitoneum was released and even under low pressure there was no bleeding of any of the pedicles are vaginal cuff. The umbilical port was removed. The umbilical skin incisions were closed with Monocryl suture and skin glue by Dr. Isidro. The vaginal instruments were removed by me and a vaginal sweep was completed by me. The surgery was performed by me with assistance other than the portions dictated as above. There were no qualified residents available for this procedure. All sponge lap and needle counts were correct and the patient was transferred to the recovery room in stable condition. Grafts/Implants Used: none Procedure Start Time: 09:40 Procedure Stop Time: 11:04 Complications none Admit VTE Documentation VTE Present on Admission: No VTE Mechan Device Prophylaxis: SCD's VTE Pharm Prophylaxis ordered?: No Reason prophylaxis not ordered:: Procedure Not Indicated
[2022-12-16] MEDS: Ondansetron 4 MG/2 ML Vial IV (12:00)
--- NOTE | 2022-12-16 12:02 | DCINST_ITS ---
Discharge Instructions Diet Discharge Diet: Light diet - advance as tolerated Activity Discharge Activity: May Drive (in 3-5 days as able) May resume sexual activity in: 6-8 weeks Weight Bearing Status: Full weight bearing Lifting Restrictions: 15 lbx x 6 weeks Dressing / Incision Call your doctor if your incision/area has: Continuous Slow Oozing, Sudden Increased Bleeding and Foul Smelling Discharge Call your doctor if you observe: Fever of 101 or Higher and Using more than 1 pad per hour Cleanse incision/area with: Soap & Water (your incision has skin glue, it can get wet. LEave it on for 10 days or until it falls off) Follow Up Care Please Follow Up With: Serena Chang MD When: 1-2 weeks or as needed [phone] Test Results: Test results from this visit will be discussed in further detail at your follow- up appointment, if applicable. Discharge Plan Admission Primary Reason for Your Visit: hysterectomy, removal of tubes and left ovary Attending Provider: Serena Chang Primary Care Provider: Kendell Morgan Consulting Providers: Asael Webb Discharge Orders/Prescriptions Prescriptions: New oxycodone 5 mg tablet 5 mg PO Q6H PRN PRN (Reason: severe pain) 7 Days Qty: 20 0RF ibuprofen [ibuprofen] 600 mg tablet 600 mg PO Q6H PRN (Reason: Pain) Qty: 60 1RF Continued fluoxetine 20 mg capsule 20 mg PO DAILY Qty: 30 2RF Flovent Diskus 50 mcg/actuation blister with device 2 inh INHALATION BID albuterol sulfate 90 mcg/actuation HFA aerosol inhaler 2 inh INHALATION PRN PRN (Reason: Wheezing) Referrals / Follow Up: Kendell Morgan DO [Primary Care Provider] - Disposition Disposition (needs filled in before D/C Order can be placed): Home, Self Care
[2022-12-16] MEDS: Lactated Ringers 1,000 ML 75 ML IV (12:51)
[2022-12-16] MEDS: oxyCODONE 5 MG Tablet PO (14:28)
== END 2022-12-16 15:35 | disposition home or self-care (01) ==
LOC: SDC 07:35 → AC 07:35
PROVIDERS: Anesthesiology; PCP Student in an Organized Health Care Education/Training Program; Referring Provider Obstetrics & Gynecology; Visit Provider Obstetrics & Gynecology
PROC: 0UT94ZZ Resection of Uterus, Percutaneous Endoscopic Approach (ICD-10-PCS; CPT 58571; principal; 2022-12-16 09:20)
DX: N72 Inflammatory disease of cervix uteri (principal); N83.12 Corpus luteum cyst of left ovary; N93.9 Abnormal uterine and vaginal bleeding, unspecified; N80.03 Adenomyosis of the uterus; N83.02 Follicular cyst of left ovary; F17.210 Nicotine dependence, cigarettes, uncomplicated; N92.1 Excessive and frequent menstruation with irregular cycle
CPT/HCPCS: 58571; 36415; 81025; 82962; 83735; 85025; 86850; 86900; 86901; 88307; J7120; J2405; J3475

== ENCOUNTER 2023-04-23 17:21 | Emergency (ER) | payer MEDICAID, SELFPAY ==
[2023-04-23 17:24] VITALS: BP 127/76; PULSE 92; RESP 18; TEMP 36.4; O2SAT 97; BMI 35.9
--- NOTE | 2023-04-23 17:42 | EDS_ITS ---
HPI <JOSE Stewart - Last Filed: 04/23/23 19:02> History of Present Illness Chief Complaint: Headache Narrative Narrative: 38-year-old female has had a painful scratchy throat and increased cough for the last day or so. She states she has seasonal allergies and takes OTC meds but is not helping this. No fever or chills. No chest pain or shortness of breath. No GI symptoms. PFSH <JOSE Stewart - Last Filed: 04/23/23 19:02> PFSH Medical History Anxiety Depression MRSA infection PTSD (post-traumatic stress disorder) Smoker Wears contact lenses Wears dentures Wears glasses Home Medications albuterol sulfate 90 mcg/actuation aerosol inhaler 2 inh inhalation PRN PRN Wheezing 12/08/22 [History Last Taken Unknown] fluticasone propionate 50 mcg/actuation blister powder for inhalation (Flovent Diskus) 2 inh inhalation BID 12/08/22 [History Last Taken Unknown] ibuprofen 600 mg tablet 600 mg PO Q6H PRN Pain #60 TABLETS 12/16/22 [Rx Last Taken Unknown] oxycodone 5 mg tablet 5 mg PO Q6H PRN PRN severe pain 7 days #20 TABLETS 12/16/22 [Rx Last Taken Unknown] fluoxetine 20 mg capsule 20 mg PO DAILY #30 caps 02/02/23 [Rx Last Taken Unknown] Allergy/AdvReac Type Severity Reaction Status Date / Time latex Allergy Itching Verified 04/23/23 17:24 Surgical History History of Social History Smoking Status: Current every day smoker tobacco type: cigarettes ROS <JOSE Stewart - Last Filed: 04/23/23 19:02> ROS ED ROS Narrative Constitutional: Negative for fever, chills, malaise. ENT: Positive for sore throat. CVS: Negative for chest pain. Respiratory: Positive for cough. Negative for shortness of breath. GI: Negative for abdominal pain, nausea, vomiting, diarrhea. Neuro: Negative for headache. EXAM <JOSE Stewart - Last Filed: 04/23/23 19:02> Physical Exam Narrative Exam Narrative: CONST: Patient sitting in no acute distress. EYES: Normal inspection. ENT: Pharyngeal erythema with no tonsillar swelling or exudate, midline uvula, airway patent. No trismus or tongue elevation, sublingual space is soft. NECK: Normal inspection. Trachea midline, no lymphadenopathy. RESP: No respiratory distress, CTAB. CVS: Regular rate and rhythm, no murmur, no gallop. SKIN: Color normal, no rash, warm, dry, intact. EXTREMITIES: Normal appearance, no pedal edema. NEURO: Oriented x4. PSYCH: Normal affect. Const Vital Signs: 04/23/23 17:24 Temperature 97.5 F L Temperature Source Temporal Pulse Rate 92 Respiratory Rate 18 Blood Pressure 127/76 H Blood Pressure Mean 93 Pulse Ox 97 Oxygen Delivery Method Room Air <Dr. Nima Morillo DO - Last Filed: 04/23/23 19:18> Physical Exam Const Vital Signs: 04/23/23 17:24 Temperature 97.5 F L Temperature Source Temporal Pulse Rate 92 Respiratory Rate 18 Blood Pressure 127/76 H Blood Pressure Mean 93 Pulse Ox 97 Oxygen Delivery Method Room Air [facility] <JOSE Stewart - Last Filed: 04/23/23 19:02> [facility] Narrative Medical decision making narrative: Patient has acute sore throat and cough. She appears well and nontoxic and is afebrile with normal vital signs. She has mild pharyngeal erythema with an otherwise benign exam. There is no evidence of tonsillar dental infection. No Ally's. Her Centor score is 0 so I did not do a strep test. Rapid COVID/flu is negative. I suspect she has viral pharyngitis and she was treated symptomatically with Advil and we discussed symptomatic care at home. <Dr. Nima Morillo, - Last Filed: 04/23/23 19:18> [facility] Treatment and Re-Evaluation Comments:: I have personally performed a face to face assessment of the patient and have reviewed the GABE Note. I performed a substantive portion of the visit including all aspects of the following. My norman findings include: History is 38-year-old female states yesterday she awoke with sore throat sore anterior neck and a hoarse voice. No reported fevers. No significant cough vomiting or diarrhea Exam is well-appearing nontoxic female sitting comfortably in the bed she is handling her secretions. She does have a hoarse voice. She has tender anterior lymphadenopathy. There are a few scattered nontender posterior chain nodes. The oral pharyngeal exam however is normal Medical Decison Making patient most likely has viral illness. Flu and COVID were negative. She will be discharged home with supportive care Other additions or changes: [None] Discharge Plan Triage Chief Complaint: Headache Other Complaint: Sore Throat ED Midlevel Provider: Linda Roberts ED Provider: Nima Morillo Dx/Rx/DC Orders Clinical Impression: Acute viral pharyngitis Instructions: ED Pharyngitis, Viral Prescriptions: No Action fluoxetine 20 mg capsule 20 mg PO DAILY Qty: 30 2RF Flovent Diskus 50 mcg/actuation blister with device 2 inh INHALATION BID albuterol sulfate 90 mcg/actuation HFA aerosol inhaler 2 inh INHALATION PRN PRN (Reason: Wheezing) oxycodone 5 mg tablet 5 mg PO Q6H PRN PRN (Reason: severe pain) 7 Days Qty: 20 0RF ibuprofen [ibuprofen] 600 mg tablet 600 mg PO Q6H PRN (Reason: Pain) Qty: 60 1RF Primary Care Provider: Kendell Morgan Referrals: Kendell Morgan DO [Primary Care Provider] - Activity Restrictions/Additional Instructions: It is most likely a viral illness causing her sore throat. There are no signs of strep throat no indication for antibiotics. I recommend ibuprofen every 6 hours as needed. Disposition Disposition: Home, Self Care Discharge Date/Time: 04/23/23 19:15
[2023-04-23] MEDS: Ibuprofen 200 MG Tablet 600 MG PO (18:18)
== END 2023-04-23 19:15 | disposition home or self-care (01) ==
PROVIDERS: Emergency Provider Emergency Medicine; PCP Student in an Organized Health Care Education/Training Program; Visit Provider Emergency Medicine
DX: J02.8 Acute pharyngitis due to other specified organisms (principal); F17.210 Nicotine dependence, cigarettes, uncomplicated
CPT/HCPCS: 87428; 99283

== ENCOUNTER 2023-05-14 13:22 | Emergency (ER) | payer MEDICAID, SELFPAY ==
[2023-05-14 13:24] VITALS: BP 110/79; PULSE 80; RESP 18; TEMP 36.5; O2SAT 96; BMI 37.0
--- NOTE | 2023-05-14 13:31 | RAD_ITS ---
INDICATION: fall EXAMINATION/TECHNIQUE: X-RAY - LEFT XR Wrist Min 3 Views 3 VIEWS COMPARISON: No relevant prior comparison study available FINDINGS: SOFT TISSUES: Soft tissue swelling. No radiopaque foreign body. BONES/JOINTS: Comminuted intra-articular slightly displaced fracture of the distal radius.. The remainder of the osseous structures appear intact. Preservation of the joint space.. No sclerotic or destructive changes observed. RAD/Wrist min 3 Views IMPRESSION: Fracture of the distal radius. Electronically Signed: Gareth Navarro MD at 14:25 EDT ,
[2023-05-14] MEDS: HYDROcodone Bitartrate/Apap 5/325 Tablet PO (13:38)
--- NOTE | 2023-05-14 13:45 | RAD_ITS ---
INDICATION: fall EXAMINATION/TECHNIQUE: X-RAY - LEFT XR Hand Min 3 Views 3 VIEWS COMPARISON: No relevant prior comparison study available FINDINGS: SOFT TISSUES: No soft tissue swelling or gas. No radiopaque foreign body. BONES/JOINTS: Comminuted intra-articular fracture of the distal radius.. No other acute fractures are seen. Preservation of the joint space.. No sclerotic or destructive changes observed. RAD/Hand Min 3 Views IMPRESSION: Comminuted intra-articular fracture of the distal radius. Electronically Signed: Gareth Navarro MD at 14:24 EDT ,
--- NOTE | 2023-05-14 14:19 | EX.ED.UPPERE ---
HPI <VINCE Lou - Last Filed: 05/14/23 14:26> History of Present Illness Chief Complaint: Upper Extremity Injury Narrative Narrative: Patient is a 38-year-old female with history of anxiety, depression, asthma presents to the emergency department after mechanical fall. Patient was walking in the [place], slipped and fell on her outstretched hand on the left side. Patient is right-hand dominant. Patient significant pain to the left wrist and she is here for evaluation. Denies any other injury PFSH <VINCE Lou - Last Filed: 05/14/23 14:26> [facility] Medical History Anxiety Depression MRSA infection PTSD (post-traumatic stress disorder) Smoker Wears contact lenses Wears dentures Wears glasses Home Medications albuterol sulfate 90 mcg/actuation aerosol inhaler 2 inh inhalation PRN PRN Wheezing 12/08/22 [History Last Taken Unknown] fluticasone propionate 50 mcg/actuation blister powder for inhalation (Flovent Diskus) 2 inh inhalation BID 12/08/22 [History Last Taken Unknown] ibuprofen 600 mg tablet 600 mg PO Q6H PRN Pain #60 TABLETS 12/16/22 [Rx Last Taken Unknown] fluoxetine 20 mg capsule 20 mg PO DAILY #30 caps 04/27/23 [Rx Last Taken Unknown] hydroxyzine HCl 25 mg tablet 25 mg PO TID PRN anxiety #90 tabs 04/27/23 [Rx Last Taken Unknown] ondansetron 4 mg disintegrating tablet 4 mg PO Q8H PRN PRN Nausea #10 tabs 05/14/23 [Rx Last Taken Unknown] oxycodone-acetaminophen 5 mg-325 mg tablet (Percocet) 1 tab PO Q8H PRN pain 3 days #10 tabs 05/14/23 [Rx Last Taken Unknown] Allergy/AdvReac Type Severity Reaction Status Date / Time latex Allergy Itching Verified 05/14/23 13:24 Surgical History History of Social History Smoking Status: Current every day smoker tobacco type: cigarettes ROS <VINCE Lou - Last Filed: 05/14/23 14:26> ROS ED ROS Narrative Constitutional: Negative for fever, chills, weight loss, weakness Eyes: Negative for vision loss, vision change, double vision ENT: Negative for any sore throat, ear pain, congestion Cardiovascular: Negative for any chest pain, tightness, palpitations Respiratory: Negative for any cough, sputum production, hemoptysis, dyspnea, dyspnea on exertion, orthopnea Gastrointestinal: Negative for any abdominal pain, nausea, vomiting, diarrhea, constipation, blood in stool, blood in vomit : Negative for any urinary frequency, dysuria, retention, blood in urine Muscle skeletal: Negative for any muscle joint pain, stiffness, myalgias, arthralgias, neck pain, back pain. Positive for left wrist pain Neurological: Negative for any headache, syncope, numbness or tingling, dizziness Skin: Negative for any rashes, lumps, itching, abrasions, lacerations Psychiatric: Negative for any depression, anxiety, stress, suicidal ideation, homicidal ideation Hematologic: Negative for any easy bruising, excessive bruising, easy bleeding Allergies: Negative for any eczema, hives, rash EXAM <VINCE Lou - Last Filed: 05/14/23 14:26> Physical Exam Narrative Exam Narrative: Vital signs reviewed. HEET: Head normocephalic atraumatic, TMs clear bilaterally. Posterior pharynx is clear, moist mucous membranes. Nares clear bilaterally. Neck: Supple with no lymphadenopathy or tenderness. No signs of meningismus, negative jolt sign. Cardiac: Regular rate and rhythm no murmurs gallops or rubs, equal peripheral pulses bilaterally. Respiratory: Lungs clear to auscultation bilaterally. No chest tenderness. Abdomen: Soft, nontender, nondistended. No abdominal bruit or pulsatile masses. No hepatosplenomegaly Extremities: patient does have significant pain to the left wrist, however even on slight palpation, patient is in extreme pain. Slightly upper portion. Patient does have +2 radial pulse. Patient has full movement of the fingers. Worsening pain along the distal radius, distal ulna. No deformity noted. Neuro: Cranial nerves II through XII intact, no focal neurological deficits. Skin: Clean dry and intact with no rash, purpura, petechiae, vesicles or pustules. Backs/flank: No CVA tenderness, no midline spinal tenderness, no deformity. Psych: Normal mood and affect. No SI, HI or acute psychosis. Const Vital Signs: 05/14/23 13:24 Temperature 97.7 F L Temperature Source Temporal Pulse Rate 80 Respiratory Rate 18 Blood Pressure 110/79 Blood Pressure Mean 89 Pulse Ox 96 Oxygen Delivery Method Room Air Positive well nourished and well developed General Appearance ED: well developed MDM <Leonel Ewing NP-C - Last Filed: 05/14/23 14:26> MDM Treatment and Re-Evaluation Narrative: Patient arrives in moderate distress secondary to pain in the left wrist. Patient was given a Doss. Patient presents the emergency department after sustaining a left wrist injury.Patient had 3 views of the left hand, left wrist they will be interpreted by the ER physician. All radiologic examinations were read, reviewed by the emergency department attending. From these reads, a plan of care will be put in place. Patient's x-ray of the left wrist so an acute fracture to the distal radius. Patient replaced in AP fiberglass splint. She will follow-up with Dr. Greene from orthopedics. Patient be given pain medicine, nausea medicine for home. He is instructed to ice and elevate. Post splint, patient had equal feeling to both hands, fingertips. Patient was given return precautions. All questions answered, patient stable for discharge. <Dr. Nima Morillo DO - Last Filed: 05/14/23 14:41> MDM Treatment and Re-Evaluation Narrative: Patient arrives in moderate distress secondary to pain in the left wrist. Patient was given a Doss. Patient presents the emergency department after sustaining a left wrist injury.Patient had 3 views of the left hand, left wrist they will be interpreted by the ER physician. All radiologic examinations were read, reviewed by the emergency department attending. From these reads, a plan of care will be put in place. Patient's x-ray of the left wrist so an acute fracture to the distal radius. Patient replaced in AP fiberglass splint. She will follow-up with Dr. Greene from orthopedics. Patient be given pain medicine, nausea medicine for home. He is instructed to ice and elevate. Post splint, patient had equal feeling to both hands, fingertips. Patient was given return precautions. All questions answered, patient stable for discharge. I have personally performed a face to face assessment of the patient and have reviewed the GABE Note. I performed a substantive portion of the visit including all aspects of the following. My norman findings include: History is patient fell in a [place] injuring the left wrist. She notes pain from the elbow to the fingers. Left hand dominant Medical Decison Making mild swelling over the dorsum of the right wrist the lateral radiocarpal junction. No deformity. Neurovascular intact. Patient has tenderness to palpation from the elbow inferiorly out of proportion to the examination my interpretation of the plain films of the left wrist and hand is acute intra-articular comminuted fracture of the distal radius. Patient was placed in an AP splint. We will follow-up with orthopedics. Pain medication given. Discharge Plan Triage Chief Complaint: Upper Extremity Injury ED Midlevel Provider: Leonel Ewing ED Provider: Nima Morillo Dx/Rx/DC Orders Clinical Impression: Distal radial fracture, Fall Instructions: Wrist Fracture, ED Fracture, Upper Extremity Prescriptions: New oxycodone-acetaminophen [Percocet] 5-325 mg tablet 1 tab PO Q8H PRN (Reason: pain) 3 Days Qty: 10 0RF ondansetron 4 mg tablet,disintegrating 4 mg PO Q8H PRN PRN (Reason: Nausea) Qty: 10 0RF No Action hydroxyzine HCl 25 mg tablet 25 mg PO TID PRN (Reason: anxiety) Qty: 90 0RF fluoxetine 20 mg capsule 20 mg PO DAILY Qty: 30 2RF Flovent Diskus 50 mcg/actuation blister with device 2 inh INHALATION BID albuterol sulfate 90 mcg/actuation HFA aerosol inhaler 2 inh INHALATION PRN PRN (Reason: Wheezing) ibuprofen [ibuprofen] 600 mg tablet 600 mg PO Q6H PRN (Reason: Pain) Qty: 60 1RF Primary Care Provider: Kendell Morgan Referrals: Bernabe Pedroza DO [Med Staff - Active Staff] - Kendell Morgan DO [Primary Care Provider] - Activity Restrictions/Additional Instructions: Please ensure that you ice and elevate. You need to follow-up with orthopedics to have follow-up. You have pain medicine, nausea medicine at home. Do not get this cast wet, this is a temporary cast Disposition Disposition: Home, Self Care
== END 2023-05-14 14:45 | disposition home or self-care (01) ==
PROVIDERS: Emergency Provider Emergency Medicine; PCP Student in an Organized Health Care Education/Training Program; Visit Provider Emergency Medicine
DX: S52.572A Other intraarticular fracture of lower end of left radius, initial encounter for closed fracture (principal); F17.210 Nicotine dependence, cigarettes, uncomplicated; W19.XXXA Unspecified fall, initial encounter
CPT/HCPCS: 29125; 73110; 73130; 99282

== ENCOUNTER 2023-05-19 08:28 | Day surgery (SDC) | payer MEDICAID, SELFPAY ==
[2023-05-19] VITALS (9 sets, daily range): BP systolic 121–157; BP diastolic 66–102; PULSE 63–92; RESP 14–16; TEMP 36.6–37.3; O2SAT 90–98; BMI 36.5
[2023-05-19] MEDS: Lactated Ringers 1,000 ML 15 ML IV (09:10)
[2023-05-19] MEDS: Cefazolin 2 GM in 0.9% Normal Saline (100mL Bag) 100 ML IV (10:08)
--- NOTE | 2023-05-19 10:08 | RAD_ITS ---
INDICATION: LEFT WRIST OPEN REDUCTION INTERNAL FIXATION EXAMINATION/TECHNIQUE: X-RAY - LEFT XR Wrist 6 Views COMPARISON: May 14, 2023 FINDINGS: Intraoperative images demonstrate interval ORIF for a distal radial comminuted fracture. Bony fragments demonstrate improved alignment and approximation . RAD/Wrist min 3 Views IMPRESSION: ORIF for a distal radial fracture. Electronically Signed: Bryon Barragan DO at 19:05 EDT ,
[2023-05-19] MEDS: Lidocaine 1% /Epi 1:100 (20ml) 20 ML Vial (11:27)
--- NOTE | 2023-05-19 11:32 | PCM.HP.BLA ---
History and Physical Date of Admission: 05/19/23 [facility] [address] [place] [address] OFFICE VISIT Date of Service: 05/15/23 MR#: [id number] Acct: [id number] Name: LEONARD GRIMM Rep #: [id number] : 1985 Provider: Dr. Bernabe Pedroza, Age/Sex: 38/F Location: [facility] Status: Signed Intake Vital Signs 05/14/2313:24 Height 5 ft 3 in Intake Visit Reasons: LEFT WRIST Chief Complaint: left wrist Accompanied by: Significant Other Is patient in pain?: Yes Pain scale (1-10): 9 Allergies latex Allergy (Verified 05/14/23 13:24) Itching Medications albuterol sulfate 90 mcg/actuation aerosol inhaler 2 inh inhalation PRN PRN Wheezing 12/08/22 [History Confirmed 05/15/23] fluticasone propionate 50 mcg/actuation blister powder for inhalation (Flovent Diskus) 2 inh inhalation BID 12/08/22 [History Confirmed 05/15/23] fluoxetine 20 mg capsule 20 mg PO DAILY #30 caps 04/27/23 [Rx Confirmed 05/15/23] ondansetron 4 mg disintegrating tablet 4 mg PO Q8H PRN PRN Nausea #10 tabs 05/14/23 [Rx Confirmed 05/15/23] oxycodone-acetaminophen 5 mg-325 mg tablet (Percocet) 1 tab PO Q8H PRN pain 3 days #10 tabs 05/14/23 [Rx Confirmed 05/15/23] PFSH Medical History Anxiety Depression MRSA infection PTSD (post-traumatic stress disorder) Smoker Wears contact lenses Wears dentures Wears glasses Surgical History History of Social History (Updated 05/15/23 @ 10:32 by Kiley Espinoza) Smoking Status: Current every day smoker tobacco type: cigarettes Smoking packs per day: 0.5 Smoking cigarettes per day: 10.0 HPI LEFT WRIST Details: Parts of this documentation were recorded by a scribe, this documentation accurately reflects the service provided and the decisions made by me, Dr. Bernabe Pedroza, DO 05/15/23 0824. LEONARD GRIMM is a 38 year old F NEW patient here today for left wrist fx. DOI: 05/14/23. She states that she fell and landed on her wrist with her wrist in hyperflexion position. SHe states that she was climbing up a dirt hill when she fell. She is right handed. She was seen at [facility] and had xrays taken and was placed into a splint and told to F/U with ortho. She is having occasional numbness into the fingers but when she repositions her hand the tingling subsides. Denies any pain in the elbow or shoulder. Ortho Exam General General: Yes no acute distress Neurologic: Yes alert and Yes oriented x3 Psychologic: Yes reasonable and appropriate Right Wrist/Hand Skin/Wound: Yes Swelling Left Wrist/Hand Skin/Wound: Yes Swelling, Yes nail intact and Yes capillary refill normal WRIST: intact sensation to light touch able move fingers Head: Normocephalic Atraumatic Chest: symmetrical rise, non-labored breathing, no audible wheeze Abdomen: no guarding, non-rigid Coding Level of Care Code Off vis,new,level 3 Diagnoses Other closed intra-articular fracture of distal end of left radius, initial encounter S52.572A Encounter type: initial encounter Fracture type: closed Fracture morphology: other intra-articular Assessment and Plan Assessment and Plan (1) Distal radius fracture, left: Status: Acute Qualifiers: Encounter type: initial encounter Fracture type: closed Fracture morphology: other intra-articular Qualified Code(s): S52.572A - Other intraarticular fracture of lower end of left radius, initial encounter for closed fracture Plan Patient educated that she has an intra-articular comminuted fx of the left radius. Treatment options are conservative care with casting or surgical repair of the fx site. Educated that the risk of casting and conservative care would cause an increased risk of arthritis if the fx site does move. Reviewed the pre-operative plans with the patient. Would recommend left distal radius ORIF. Risks and benefits of the procedure vs conservative treatment were fully explained, including but not limited to infection, neurovascular injury, continued pain, arthritis, stiffness, need for further surgery, re-injury, DVT, PE, general risks of anesthesia, and loss of limb or life. The patient understands all the risks and does wish to proceed with written consent for left distal radius ORIF. Encouraged to keep the hand elevated and iced as much as she can to reduce swelling. Can not take any Ibuprofen or Aleve prior to surgery. She can take Tylenol for her pain and limit the use of Percocet. Follow up 2wk post op or sooner if pain, swelling, numbness or associated symptoms, or concerns develop. All questions answered. Patient in agreement of plan. 05/15/23 1140 <Electronically signed by Bernabe Pedroza DO> Date Bernabe Pedroza DO Cosigner Signature: Date (if applicable) CC: ~ I have examined the patient and the H&P has been reviewed. There are no clinical changes since date of exam.
--- NOTE | 2023-05-19 11:33 | OP.PCM_ITS ---
Operative Report Date of Procedure: 05/19/23 Preoperative diagnosis: Left displaced comminuted intra-articular distal radius fracture greater than 3 fragments Postoperative diagnosis: Same Procedure: ORIF of the distal radius Implants: Synthes distal radius variable angle locking plate Tourniquet time: 43 minutes Complications: None Indication for procedure: 38-year-old female patient had a fall sustaining a displaced intra-articular distal radius fracture on her left wrist we discussed risks benefits and alternatives of conservative versus surgical intervention. Including the risk of bleeding infection nerve artery tissue damage need for further surgery continued pain postoperative stiffness need for postoperative physical therapy and the expected postoperative course. Procedure: The patient was met in the preoperative holding area the operative extremity was identified by both patient and physician and marked. Patient was met by anesthesia she was brought back to the operating room on a wheeled cart and transferred to the operating table in the supine position anesthesia was started. A well-padded tourniquet was placed on the upper arm of the operative extremity. She was prepped and draped in the usual sterile fashion. A Time out was called to ensure the proper patient procedure and extremity were being contemplated. A 15 blade scalpel was used to make a linear incision over the FCR tendon this was carried down through the skin and subcutaneous tissue. Electrocautery was used to maintain hemostasis. Idania retractors were used. The FCR tendon sheath was incised and the FCR tendon was mobilized radially. A deep blade scalpel was used to perforate the fascia of the deep FCR tendon sheath and Littler scissors were used to dissect proximally and distally. Blunt dissection was performed a julio was placed on the radial and ulnar side of the radius. The pronator quadratus was partially torn from the injury and was released off the radial border of the radius with electrocautery and was elevated with a norman elevator. The Hohmann retractors were then placed deep to this muscle. The fracture site was visualized and was freed of hematoma and clot debris with the use of small rongeur and Rhodhiss. The fracture was then reduced with a [id number] reduction clamp. This was checked under fluoroscopy to ensure that an adequate reduction could be performed. A plate was then positioned over the fracture site and temporarily fixed to the bone with K wires. A cortical screw was then placed in the shaft and a cortical screw was placed in the distal fragment to bring the plate closer to the bone sequential locking screws were placed distally this was checked on both AP and lateral projections to ensure screw placement was not penetrating the joint and was in the proper location. Bone drill sleeve was used for the radial styloid screw and a variable angle fashion. The remainder of the cortical screws were placed in the shaft. And the fracture and hardware were visualized in both AP and lateral projections in good alignment and fracture positioning. The wound was thoroughly irrigated. Pronator quadratus was not repairable. A subcutaneous stitch with 3-0 Vicryl was performed followed by 4-0 nylon vertical mattress stitches. Followed by Xeroform 4 x 4 ABD web roll stockinette more web roll and an Marquis wrap. A plaster splint was applied volarly .the tourniquet was let down. There was no complications intraoperatively and the patient was brought back to the PACU in stable condition where she received an axillary block. All counts were correct.
--- NOTE | 2023-05-19 11:42 | DCINST_ITS ---
Discharge Instructions Diet Discharge Diet: No restrictions Dressing / Incision Call your doctor if you observe: Shortness of breath and Chest pain Additional Dressing/Incision Instructions:: Strict elevation of operative extremity above heart for next 72 hours. Ice 15 minutes on 15 minutes off. Continue ice and elevation for 7 days postoperatively. Encourage finger range of motion. No lifting pushing or pulling more than a coffee cup. Must keep splint on clean and dry. Follow-up in office in 1 week. Do not take more pain medication that was prescribed. Pain medication can be addictive and abused. we are not responsible for lost or stolen prescriptions. Only take what is absolutely needed to control pain. Supplement with Tylenol and OTC Motrin. Do not mix with alcohol Follow Up Care Please Follow Up With: Bernabe Pedroza DO When: 2 weeks Test Results: Test results from this visit will be discussed in further detail at your follow- up appointment, if applicable. Discharge Plan Admission Attending Provider: Bernabe Pedroza Primary Care Provider: Kendell Morgan Discharge Orders/Prescriptions Prescriptions: New oxycodone 5 mg tablet 5 - 10 mg PO Q4H PRN (Reason: pain) 5 Days Qty: 30 0RF Discontinued oxycodone-acetaminophen [Percocet] 5-325 mg tablet 1 tab PO Q8H PRN (Reason: pain) 3 Days Qty: 10 0RF No Action fluoxetine 20 mg capsule 20 mg PO DAILY Qty: 30 2RF Flovent Diskus 50 mcg/actuation blister with device 2 inh INHALATION BID albuterol sulfate 90 mcg/actuation HFA aerosol inhaler 2 inh INHALATION PRN PRN (Reason: Wheezing) ondansetron 4 mg tablet,disintegrating 4 mg PO Q8H PRN PRN (Reason: Nausea) Qty: 10 0RF hydroxyzine HCl 25 mg tablet 25 mg PO Q8H PRN (Reason: anxiety) Patient Comments: TAKE 1 TABLET BY MOUTH THREE TIMES DAILY NEEDED FOR ANXIETY Referrals / Follow Up: Kendell Morgan DO [Primary Care Provider] - Disposition Disposition (needs filled in before D/C Order can be placed): Home, Self Care
== END 2023-05-19 13:57 | disposition home or self-care (01) ==
LOC: SDC 08:29 → AC 08:30
PROVIDERS: PCP Student in an Organized Health Care Education/Training Program; Referring Provider Orthopaedic Surgery; Visit Provider Orthopaedic Surgery
PROC: (CPT 25607; principal; 2023-05-19 09:45)
DX: S52.572A Other intraarticular fracture of lower end of left radius, initial encounter for closed fracture (principal); F17.210 Nicotine dependence, cigarettes, uncomplicated; F41.9 Anxiety disorder, unspecified; F32.A Depression, unspecified; F43.10 Post-traumatic stress disorder, unspecified; Z79.899 Other long term (current) drug therapy; W19.XXXA Unspecified fall, initial encounter
CPT/HCPCS: 25607; 01830; 73110; 76000; C1713; J7120; J2405

== ENCOUNTER 2023-08-07 14:24 | Emergency (ER) | payer MEDICAID, SELFPAY ==
[2023-08-07 14:25] VITALS: BP 132/94; PULSE 97; RESP 14; TEMP 36.4; O2SAT 99; BMI 37.5
--- NOTE | 2023-08-07 14:34 | EX.ED.VIS.UR ---
HPI HPI - URI History of Present Illness Chief Complaint: Cough Detail of Chief Complaint: Cough, myalgias and arthralgias with documented temperature of 102.3 ?F Onset/Context/Timing Onset: Yesterday Context: Sudden Onset Timing: Continuous and Waxes and wanes Quality: Upper respiratory tract infectious symptoms Location: Respiratory Current Severity: Mild Maximum Severity: Moderate Worsened by: Not Worsened By Swallowing, Eating Solids or Drinking Liquids Relieved by: Tylenol Associated Symptoms Associated Symptoms: Positive for Nasal Congestion, Headache, Myalgias, Nausea, Vomiting (Post tussive vomiting last evening), Shortness of Breath and Nonproductive cough; Negative for Sinus Pressure, Diarrhea or Chest Pain Narrative Narrative: Patient is a 38-year-old woman with history of asthma, depression and PTSD who presents with upper respiratory infectious symptoms that started last evening. She has had a documented temperature to 102.3 ?F. She complains of global headache. She denies photophobia, neck stiffness or pain. She does endorse rhinorrhea, congestion and postnasal drainage. She denies sore throat. Her cough is essentially nonproductive. She states she has been using her inhaler more frequently. She has not been on prednisone the last 3 to 6 months. She does smoke. She is presently smoking 1 pack/week. She has had ill contacts. Apparently her 's grandfather was diagnosed with influenza. She denies leg pain, swelling or discoloration. She denies history of VTE. She has no risk factors for VTE. Prior similar symptoms: No Recent Illness/Hospitalization: No ROS ROS ED Constitutional Constitutional ED: Reports chills, fever(s) and sweats; Denies subjective or weight loss Eyes Eyes: Reports other Details: Additional information HPI narrative. ; Denies blurry vision, change in vision or diplopia ENT ENT ED: Reports rhinorrhea; Denies ear pain or sore throat Cardiovascular Cardiovascular: Denies chest pain, orthopnea, palpitations, paroxysmal nocturnal dyspnea or racing heartbeat Respiratory/Chest Respiratory/Chest: Reports cough, dyspnea and dyspnea on exertion; Denies orthopnea, paroxysmal nocturnal dyspnea or sputum Gastrointestinal Gastrointestinal: Reports nausea; Denies abdominal pain, constipation, diarrhea or melena Genitourinary Genitourinary ED: Denies dysuria, hematuria or urinary frequency Musculoskeletal Musculoskeletal: Reports arthralgias and myalgias; Denies back pain or neck pain Integumentary Denies rash Neurologic Neurologic: Reports headache(s) and weakness; Denies paresthesias Psychiatric Psychiatric: Reports depression Hematologic/Lymphatic Hematologic/Lymphatic: Denies easy bleeding or easy bruising PFSH PFSH Medical History Anxiety Depression MRSA infection PTSD (post-traumatic stress disorder) Smoker Wears contact lenses Wears dentures Wears glasses Home Medications albuterol sulfate 90 mcg/actuation aerosol inhaler 2 inh inhalation PRN PRN Wheezing 12/08/22 [History Last Taken Unknown] fluticasone propionate 50 mcg/actuation blister powder for inhalation (Flovent Diskus) 2 inh inhalation BID 12/08/22 [History Last Taken Unknown] fluoxetine 20 mg capsule 20 mg PO DAILY #30 caps 04/27/23 [Rx Last Taken Unknown] ondansetron 4 mg disintegrating tablet 4 mg PO Q8H PRN PRN Nausea #10 tabs 05/14/23 [Rx Last Taken Unknown] hydroxyzine HCl 25 mg tablet 25 mg PO Q8H PRN anxiety 05/16/23 [History Last Taken Unknown] oxycodone 5 mg tablet 5 - 10 mg (1 - 2 x 5 mg) PO Q4H PRN pain 5 days #30 tabs 05/19/23 [Rx Last Taken Unknown] Allergy/AdvReac Type Severity Reaction Status Date / Time latex Allergy Itching Verified 08/07/23 14:25 Surgical History History of Hx of hysterectomy Social History (Updated 08/07/23 @ 14:[address] Juan Howe MD) household members: spouse Smoking Status: Current every day smoker tobacco type: cigarettes and e-cigarettes substance use type: does not use EXAM Physical Exam Const Vital Signs: 08/07/23 14:25 08/07/23 14:48 Temperature 97.5 F L Temperature Source Temporal Pulse Rate 97 Respiratory Rate 14 16 Respiratory Pattern Normal Blood Pressure 132/94 H Blood Pressure Mean 106 Pulse Ox 99 Oxygen Delivery Method Room Air Positive well nourished, well developed and obese Constitutional Narrative: Appears ill but not toxic. She is breathing faster than 14 times a minute. General Appearance ED: well developed; Negative for cyanotic, diaphoretic, NAD or pallor Nutritional Appearance: obese HEENT Reports dry mucous membranes normocephalic and atraumatic Face and Sinus: Negative for sinus tenderness Mouth ED: Yes dry mucous membranes Mouth: dry mucous membranes Teeth and Gingiva: Negative for caries Throat: posterior oropharynx normal Eyes PERRL and EOMs intact bilaterally General Eye ED: Negative for pale conjunctiva or scleral icterus Neck no lymphadenopathy, supple, no meningeal signs and no JVD Resp normal respiratory effort and No clear to auscultation bilaterally Resp Narrative: There is a slight increase in expiratory phase. Auscultation: wheezes expiratory wheezes, scattered wheezes and throughout Cardio S1 normal heart sound, S2 normal heart sound and no murmurs Rate: regular rate Rhythm: regular rhythm GI non-tender, non-distended and no masses Auscultation: normoactive bowel sounds Palpation: soft Extremity normal to inspection and full ROM Extremity Narrative: There is no asymmetry, swelling, discoloration, leg vein distention, palpable cords or tenderness along the distribution of the deep venous system. Neuro oriented x3, CN's II-XII intact bilaterally and no sensory deficits noted Sensorium / Orientation: alert Motor Exam: strength 5/5 throughout Psych mental status grossly normal Skin General Skin Exam: Negative for jaundice or pallor Lesions: no lesions Rashes: no rashes MDM MDM MDM Narrative Medical decision making narrative: Patient with viral-like symptoms. Will test for influenza. 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 If she is positive we will need to add advise her regarding contagiousness. Chest x-ray was obtained because of abnormal oscillatory findings to evaluate for pneumonia. Suspect this in all likelihood is influenza especially since she was exposed to someone who tested positive yesterday. History & Record Review Additional record(s) reviewed:: Prior outpatient record (Visit for recent distal radial fracture.), Prior ED visit (Exacerbation of asthma, viral pharyngitis, bronchitis.) and Prior labs Lab Data Attestation: I reviewed the patient's lab results. Lab results narrative: Influenza antigen was positive for type A and negative for type B. Radiography Chest X-Ray - ED: 2 View and Read by ED Physician (Reviewed interpreted by me at 1523 as normal. Cardiac silhouette and size normal. Perihilar region normal. Lung parenchyma normal. Osseous structures are normal.) Rhythm Strip Rhythm Strip: Sinus Rhythm Rate: 96 Ectopy: None Treatment and Re-Evaluation Narrative: Patient was informed of her x-ray results and influenza test. She was told to be ill for another 5 days. She was given off work since she is contagious. Discharge Plan Triage Chief Complaint: Cough ED Provider: Juan Howe Dx/Rx/DC Orders Clinical Impression: Fever in adult, Type A influenza, History of asthma, Acute bronchospasm, Elevated blood-pressure reading, without diagnosis of hypertension Instructions: ED Influenza (Adult) Prescriptions: No Action fluoxetine 20 mg capsule 20 mg PO DAILY Qty: 30 2RF Flovent Diskus 50 mcg/actuation blister with device 2 inh INHALATION BID albuterol sulfate 90 mcg/actuation HFA aerosol inhaler 2 inh INHALATION PRN PRN (Reason: Wheezing) ondansetron 4 mg tablet,disintegrating 4 mg PO Q8H PRN PRN (Reason: Nausea) Qty: 10 0RF hydroxyzine HCl 25 mg tablet 25 mg PO Q8H PRN (Reason: anxiety) Patient Comments: TAKE 1 TABLET BY MOUTH THREE TIMES DAILY NEEDED FOR ANXIETY oxycodone 5 mg tablet 5 - 10 mg PO Q4H PRN (Reason: pain) 5 Days Qty: 30 0RF Stand Alone Forms: ED Work / School Excuse Primary Care Provider: Kendell Morgan Referrals: Kendell Morgan DO [Primary Care Provider] - 1 Week if not improving Activity Restrictions/Additional Instructions: 1. Increase fluid intake 2. You may take either 600 mg of Tylenol every 6 hours or 800 mg of ibuprofen every 8 hours for the next 3 to 5 days. 3. You will be ill for another 5 to 6 days 4. Since you are contagious you were given a work excuse. Disposition Disposition: Home, Self Care
[2023-08-07] MEDS: predniSONE 20 MG Tablet 60 MG PO (14:44)
[2023-08-07] MEDS: Albuterol 2.5 MG/3 ML VIAL.NEB. INHALATION (14:44)
[2023-08-07 14:48] VITALS: RESP 16
[2023-08-07] MEDS: 0.9% Normal Saline (1000mL) 1,000 ML 1000 ML IV (14:48)
--- NOTE | 2023-08-07 15:00 | RAD_ITS ---
STUDY: X-RAY CHEST REASON FOR EXAM: Female, 38 years old. Cough, Fever 102.3 TECHNIQUE: PA and lateral views of the chest. COMPARISON: 06/22/2021. FINDINGS: The lungs are underexpanded with mild vascular crowding, otherwise clear. There is no demonstrated pleural abnormality. Normal size heart. Normal mediastinum and sherry. Normal visualized pulmonary arteries. Normal visualized aortic arch and descending thoracic aorta. There are diffuse degenerative changes of the visualized thoracic spine. Normal visualized ribs, clavicles, and shoulders. There is no demonstrated abnormality of the visualized soft tissue structures of the upper abdomen. RAD/Chest PA and Lateral IMPRESSION: No acute cardiopulmonary disease. Electronically Signed: Brittanie Hernández MD at 16:20 EST ,
== END 2023-08-07 16:02 | disposition home or self-care (01) ==
PROVIDERS: Emergency Provider Emergency Medicine; PCP Student in an Organized Health Care Education/Training Program; Visit Provider Emergency Medicine
DX: R50.9 Fever, unspecified (principal); J10.1 Influenza due to other identified influenza virus with other respiratory manifestations; J98.01 Acute bronchospasm; R03.0 Elevated blood-pressure reading, without diagnosis of hypertension; F17.210 Nicotine dependence, cigarettes, uncomplicated; F17.290 Nicotine dependence, other tobacco product, uncomplicated
CPT/HCPCS: 71046; 87428; 94640; 96360; 99283; J7030; A4216

== ENCOUNTER 2023-08-31 14:00 | Outpatient (RCR) | payer MEDICAID, SELFPAY ==
--- NOTE | 2023-07-20 12:13 | HP.OTEVAL_ITS ---
Patient's Visit Information Visit Information Visit Information: LEONARD GRIMM is a 38 year old F, referred to Occupational Therapy by Dr. Bernabe Pedroza DO, with a diagnosis of left distal radius fx. Date of Evaluation: 07/20/23 Occupational Therapist: ERUM Dasilva/Ann-Marie, CHT Subjective Subjective: This 38 year old female was seen for OT eval with dx of left distal radius fx- pt states she suffered fall on 05/14/23. Went to ER and then had sx on 05/19/23 ORIF of distal radius. Pt is right handed Pt works for [employer]. pt working about 40 hours a week- at times will get soreness. pt states she would like to return to her PLOF ADLs Bathing: Squeeze shampoo bottle Comments: can not squeeze bottle Kitchen: Chop with knife, Peel fruits & vegetables, Open jars, Lift saucepan and Take dish out of oven Comments: has to watch how she is holding items Yard: [place] Comments: pain and difficulty with motion Pain left wrist: Current Pain Intensity: 2 Pain Intensity Range: 0 and 5 ROM Forearm: right supination 70 pronation 70 left supination 65 pronation 55 Wrist: right 75/70 left 45/40 ROM Comments: right RD [address] 15 UD 30 Strength Health Promotion Educator: right 60# left 10# Lateral Pinch: right 14# left 8# Tripod Pinch: right 10# left 4# Sensation Sensation Comments: denies Quick DASH-Disab of Arm,Shoulder& Hand Quick DASH Score: 46.6650 Hand/Wrist Evaluation Total Score of Pain & Functional Sections: 49 Goals Goal:: pt will demo a 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 Goal:: pt will report IND with all ADls without report of weakness by d/c Rehabilitation General Assessment: pt arrives 8 weeks and 6 days s/p from a left distal radius fx. pt demo with limited ROM and strength increasing her need of assistance with daily occupations. Pt would benefit from skilled OT services 1-2x week for 6 weeks to return pt to her PLOF. Today therapist ed, pt on PROM of wrist flex/ext and RD/UD. pt demo understanding and agree to POC. Rehabilitation Potential: Good Anticipated Interventions Anticipated Interventions: A/AAROM/PROM, Strengthening, Modalities, Orthoses, Joint Protection/Energy Conservation, Education re assistive Equipment, Education re Diagnosis and Home Program Visit Plan Frequency: 2x /Week Duration: 2 Months General Plan: increase pts functional ROM initiate light strength TEXT: Thank you for the opportunity to evaluate your patient. For Medicare and Medicare HMO plans, please review the plan of care and approve it. It will need to be FAXED BACK to us at [phone] for Medicare purposes. Please let me know if there are questions or concerns regarding this plan of care. Physician Signature: Date:
--- NOTE | 2023-09-05 10:12 | HP.OTDCSUM ---
Discharge Summary D/C Summary: It has been my pleasure to treat LEONARD GRIMM under orders from Dr. Bernabe Pedroza DO, for the diagnosis of left distal radius fx for a total of 7 visit(s). Please see the following information for a summary of their discharge status. 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 Goals Patient Goals: Regain Mobility and Use Hand/Wrist/Arm Normally Again Goal:: pt will demo a increase in left production grip strength to 50# or greater by d/c to increase ins with ADLs and IADls by d/c (goal met) Goal:: pt will demo a increase in left wrist flex/ext and forearm pronation by 20* to increase pts ind.with ADLS by d.c (goal met) Goal:: pt will report left wrist pain no greater than 1/10 with use of left hand with ADLs by d/c. (goal met) Goal:: pt will report IND with all ADls without report of weakness by d/c ( goal met) Plan Plan: Discharge - pt doing well- hand not impacting ADLs or IADLs. D/C Information Discharge Comments: pt has met OT goals at this time and is D/C. d/c sentence: If there are questions or concerns regarding this patient's occupational therapy, please fell free to call me at [phone]. Thank you for the referral of this patient. Sincerely, Cherelle Padilla, OTR/L, CHT
== END 2023-08-31 19:00 | disposition home or self-care (01) ==
LOC: OT 14:00
PROVIDERS: PCP Student in an Organized Health Care Education/Training Program; Visit Provider Orthopaedic Surgery
DX: S52.502D Unspecified fracture of the lower end of left radius, subsequent encounter for closed fracture with routine healing (principal)
CPT/HCPCS: 97110; 97166; 97530